=== PATIENT | male | born 1950 | race Caucasian/White ===

== ENCOUNTER → 2016-11-20 | Outpatient (CLI) | payer MEDICARE, MEDICAID ==
[~2016-11-20] MED LIST: /ATOR40TA OR; ACTO15TA OR; ACTO30TA; AMIT75TA2 OR; BABY81CH OR; BISA5TAB29 PO; CLAR5CHW OR; CLON-412 PO; COLA100C2 OR; DULO1CAP2 PO; FLON0.05; FLUOCINONIDE TOP; FOLI1TAB OR; HUMALOG; HUMALOG INSULIN SC; INSULANT; INSULANT SC; INVO100T PO; LABE300T PO; LASI40TA OR; LIDO5DIS TOP; LISI10TA4 OR; METO25TA2 OR; MICR10CA PO; MORP-38 PO; MORP100T OR; NITR0.4S SL; OXYC10TA56 OR; PRIL20CA OR; RITA10TA OR; SILV1CRE19 TOP; SOMA250T; VITA200016 PO; VITA25003 IM; VITAMIN D50000 UNT OR
--- NOTE | 2016-11-29 00:12 | ECWPNPC ---
PATIENT NAME: AGNIESZKA RAMESH : 1950 GENDER: MALE VISIT DATE: 11/20/2016 DISCHARGE DATE: 11/20/16 1144 VISIT LOCKED DATE TIME: PHYSICIAN: FABIAN SHAW RESOURCE: FABIAN SHAW REASON FOR APPOINTMENT 1. CHRONIC PAIN HISTORY OF PRESENT ILLNESS HISTORY OF PRESENT ILLNESS: PAIN THE PATIENT DESCRIBES THE PAIN... FALL RISK SCREENING: SCREENING :NO FALLS IN THE PAST YEAR TODAY'S VISIT: NOTES: RATES PAIN TODAY 5/10. DESCRIBES PAIN CONSTANT, ACHING, TENDER AND SORENOTES LEGS AND OTHER MUSCLES ACHING EVEN AT REST. LAST BLADDER CHEMO WAS IN AUGUST. USES OXYGEN CONTINIOUSLY AT 2-3 L NC. HAD FALL 2 WEEKS AGO - NOTED ROOM STARTED TO SPIN - FELL INTO RECLINER - NO INJURY.IS WEARING CERVICAL COLLAR TO KEEP FROM TURNING HEAD AND INDUCING VERTIGO.STATES HE IS HAVING NO ADVERSE EFFECTS FROM HIS PAIN MEDS OTHER THAN THEY ARE NOT EFFECTIVE ANY LONGER. CURRENT MEDICATIONS TAKING ASPIR-81 81 MG TABLET DELAYED RELEASE 1 TABLET ORALLY ONCE A DAY TAKING FOLIC ACID 1 MG TABLET 1 TABLET ORALLY ONCE A DAY TAKING LABETALOL HCL 200 MG TABLET ORALLY BID TAKING NITROSTAT 0.4 MG TABLET SUBLINGUAL SUBLINGUAL PRN TAKING LISINOPRIL 15 MG TABLET 1 TABLET ORALLY ONCE A DAY TAKING LIPITOR 40 MG TABLET 1 TABLET ORALLY ONCE A DAY TAKING OMEPRAZOLE 20 MG CAPSULE DELAYED RELEASE 1 CAPSULE ORALLY ONCE A DAY TAKING LORATADINE 10 MG TABLET 1 TABLET ORALLY ONCE A DAY TAKING CLOBETASOL PROP OINT-COAL TAR 0.05 & 2.3 % KIT EXTERNALLY TAKING BISACODYL 10 MG TABLET DELAYED RELEASE 1 TABLET NEEDED ORALLY TID PRN TAKING FUROSEMIDE 20 MG TABLET 3 TABLETS ORALLY TWICE DAILY TAKING FLONASE 50 MCG/ACT SUSPENSION 1 SPRAY IN EACH NOSTRIL NASALLY ONCE A DAY TAKING HUMALOG 100 UNIT/ML SOLUTION 34 UNITS SUBCUTANEOUS THREE TIMES DAILY TAKING LANTUS 100 UNIT/ML SOLUTION 64 UNITS SUBCUTANEOUS BEFORE BREAKFAST AND DINNER TAKING VITAMIN B12 3000 MCG/ML INTRAMUSCULARLY ONCE MONTHLY TAKING VITAMIN D 2000 UNIT TABLET ORALLY DAILY TAKING FLUOCINOLONE CREAM & EMOLLIENT 0.025 % KIT EXTERNALLY TWICE DAILY NEEDED TAKING ZOFRAN ODT 4 MG TABLET DISPERSIBLE 1 TABLET ON THE TONGUE AND ALLOW TO DISSOLVE ORALLY EVERY 8 HRS PRN NAUSEA TAKING OXYCODONE HCL 5 MG TABLET 1-2 ORALLY EVERY 4 HOURS NEEDED MDD=8 TAKING MORPHINE SULFATE ER 15 MG TABLET EXTENDED RELEASE 1 TABLET ORALLY EVERY 12 HRS MDD=2 CHRONIC PAIN TAKING AMITRIPTYLINE HCL 100 MG TABLET 1 TABLET AT BEDTIME ORALLY ONCE A DAY NOT-TAKING RITALIN 15 MG TABLET 1 TABLET ORALLY TWICE A DAY MEDICATION LIST REVIEWED AND RECONCILED WITH THE PATIENT PAST MEDICAL HISTORY POLIO HEART PROBLEMS HIGH BLOOD PRESSURE ANGINA DIABETES 1992 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 THICKENING COPD VERTIGO ALLERGIES DEMEROL: NAUSEA/VOMITING: ALLERGY NEURONTIN: SWELLING IN HANDS: ALLERGY BEXXAR: SWELLING IN ARMS AND HANDS: ALLERGY GABITRIL: SWELLING ALL OVER BODY: ALLERGY LYRICA: SWELLING: ALLERGY NIACIN: STOMACH PAIN: ALLERGY DOXAZOSIN MESYLATE: HANDS SWELL: ALLERGY ADVICOR: STOMACH PAIN: ALLERGY FLOMAX: BLURRED VISION: ALLERGY UROXATRAL: ANKLES SWELL: ALLERGY FENTANYL: SWEATS, SHAKES, CHILLS, NUMBNESS, TINGLING, LOSS OF APPETITE, LOSS OF SLEEP: ALLERGY CARISOPRODOL: SWELLING, MOOD SWINGS: ALLERGY PAROXETINE HCL: SWELLING: ALLERGY VENLAFAXINE HCL: SWELLING, TIGHTNESS IN CHEST: ALLERGY DULOXETINE HCL: RESTLESS LEG WORSE: ALLERGY PRAMIPEXOLE-MIRAPEX: HALLUCINATIONS: ALLERGY RAPAFLO: BLADDER PROBLEMS: ALLERGY INVOKANA: NAUSEA AND STOMACH PAIN: ALLERGY TRADJENTA: MUSCLE PAIN, SPASAMS AND WEAKNESS: CONTRAINDICATION POTASSIUM: NAUSEA, DIARRHEA: SIDE EFFECTS SURGICAL HISTORY OR TO STRAIGHTEN RIGHT ANKLE 196 OR TO STRAIGHTEN LEFT ANKLE 1961 OR TO STRAIGHTEN RIGHT ANKLE 1964 OR ON RIGHT ELBOW 1966 BONE GRAFT AND PLATE RIGHT LEG 1972 OR TO LEFT FORARM 1972 BONE GRAFT TO TAKE PLATE OUT AND PUT SLOAN IN 1972 SLOAN REMOVED AND OR TO GET KNEE TO BEND 1975 OR FOR HAMMER TOE AND SPUR NREMOVED 1982 REPLACED DISC CERVICAL SPINE 1992 SCOPE LEFT KNEE 1999 RIGHT TOTAL KNEE REPLACEMENT 2000 [facility] GALL[facility] REMOVED 2007 EYE SURGURY 2008 OR TO HERNIA ON BELLY BUTTON 2012 TUMOR REMOVED FROM BLADDER 2015 TUMOR REMOVED FROM BLADDER X 2 2016 HOSPITALIZATION/MAJOR DIAGNOSTIC PROCEDURE SEE ABOVE FPOR SURGURIES REVIEW OF SYSTEMS CONSTITUTIONAL: ANY CHANGE IN YOUR MEDICAL CONDITION? NO . CHILLS NO . FEVER NO . INFECTION: DO YOU HAVE NEW INFECTIONS? NO . DO YOU HAVE HISTORY OF MRSA? NO . MUSCULOSKELETAL: ANY NEW PATTERNS OF PAIN OR NUMBNESS? YES - INCREASED LEG PAIN AND SPASMS BOTH WITH ACTIVITY AND AT REST . GASTROENTEROLOGY: ANY NEW CHANGE IN BOWEL CONTROL? NO . GENITOURINARY: ANY NEW CHANGE IN BLADDER CONTROL? HAS FOLOEY CATHETER . IS THERE A CHANCE YOU COULD BE ? NO . HEMATOLOGY/LYMPH: DO YOU TAKE ANY BLOOD THINNERS? (FOR EXAMPLE- COUMADIN, PLAVIX, AGGRENOX, PLATEL, PRADAXA, OR XARELTO) NO . WHEN WAS YOUR LAST DOSE? DATE: TIME: . NEUROLOGY: HAVE YOU FALLEN IN THE PAST 6 MONTHS? YES, APPROX 2 WEEKS AGO--LOST BALANCE AND ROOM STARTED SPINNING, WENT DOWN ONTO RECLINER, NOINJURY . ANY NEW EXTREMITY NUMBNESS OR WEAKNESS? NO . CARDIOLOGY: DO YOU HAVE A PACEMAKER OR DEFIBRILLATOR? NO . RESPIRATORY: HAVE YOU BEEN SICK IN THE PAST WEEK? NO . FEVER NO . FLU LIKE SYMPTOMS? NO . COUGH NO . INTEGUMENTARY: DO YOU HAVE ANY RASHES OR OPEN SORES? NO . ALLERGIC/IMMUNO: ARE YOU ALLERGIC TO SHELLFISH OR IV DYE? NO . ANY NEW ALLERGIES? NO . PSYCHIATRIC: DO YOU HAVE THOUGHTS OF HURTING YOURSELF OR SOMEONE ELSE? NO . ARE YOU ABUSED, NEGLECTED, OR IN AN UNSAFE ENVIRONMENT? NO . ENDOCRINOLOGY: ARE YOU DIABETIC? YES, FSB 275 THIS A.M. . OTHER: DO YOU NEED ANY PRESCRIPTIONS? NO . IF YES, PLEASE LIST: ____ . ANY NEW PROBLEMS WITH YOUR MEDICATIONS? NO . WHEN DID YOU LAST EAT? ____ . WHEN DID YOU LAST DRINK? ____ . WHAT DID YOU LAST DRINK? ____ . NAME OF PERSON DRIVING YOU HOME? ____ . DO YOU HAVE ANY OTHER QUESTIONS OR CONCERNS YES, WOULD LIKE TO DISCUSS MEDS. THE CURRENT ONES ARE NOT WORKING LIKE THEY USE TO . PSYCHOLOGY: SLEEP DISTURBANCES DISRUPTED SECONDARY TO PAIN - THIS IS NEW IN THE LAST 3-6 MONTHS . UROLOGY: GENERAL FOLOEY CATH IN PLACE . REVIEWED BY: PROVIDER: FABIAN POMPA . VITAL SIGNS WT 260 LBS, HT 70 IN, BMI 37.30 INDEX, BP 143/70 MM HG, HR 88 /MIN, RR 18 /MIN, TEMP 97.1 F, OXYGEN SAT % 94, NA INITIALS TL 1043, REVIEWED BY: AD. EXAMINATION GENERAL EXAMINATION: PSYCHALERT , ORIENTED X 3 , APPROPRIATE MOOD AND AFFECT . LUNGS:DECREASED AIR ENTRY AT BASES, CLEAR TO AUSCULTATION BILATERALLY. HEART:HEART RATE REGULAR. MUSCULOSKELETAL:GENERALIZED PAIN OVER SPINE. GENERALIZED WEAKNESS IN BILATERAL LOWER EXTREMITIES. POWER CHAIR USED FOR MOBILITY. EXTREMITIES:1+ BILATERAL LE EDEMA. . SKIN:SCALEY DRY FLAKY RASH OVER BOTH LOWER EXTREMITIES.. 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 NEXT DAY TAKE NO OXYCODONE. CONTINUE MORPHINE, RISKS AND BENEFITS OF NARCOTIC/OPIOD MEDICATIONS WERE REVIEWED WITH PATIENT - THIS INCLUDES BUT IS NOT LIMITED TO RISK OF DEPENDANCE/DEVELOPMENT OF ADDICTION, MOOD DISTURBANCE AND DEPRESSION, OSTEOPOROSIS, HORMONAL AND LABIDAL CHANGES, RESPIRATORY DEPRESSION AND . PATIENT IS ADVISED NOT TO DRIVE WHILE ON THESE MEDICATIONS, FALLS CARE PLAN: 1. RECOMMEND REMOVING ALL THROW RUGS. 2. RECOMMEND NIGHT LIGHTS 3. RECOMMEND WEARING RUBBER SOLED SHOES AND TO NOT GO BAREFOOT. 4.. ADVISED TO CHANGE POSITION SLOWLY FROM SUPINE TO STANDING TO AVOID DIZZINESS. 5. ADVISED TO USE ASSISTIVE DEVICE SUCH CANE OR WALKER AND MOTOR CHAIR. 6. USE LIFELINE SERVICES OR KEEP PORTABLE PHONE READILY AVAILABLE, #128 - SCREENING BMI AND F/U PLAN IN : BMI ABOVE NORMAL TODAY. DISCUSSED WITH PATIENT NUTRITIONAL FOOD CHOICES TO ASSIST WITH WEIGHT LOSS. RECCOMMENDED REDUCING SALT, SUGAR, SODA INTAKE. RECOMMEND INCREASE ACTIVITY TO TOLERATED. 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 CLINICAL NOTES: ISTOP REGISTRY REVIEWED AND DEMNOSTRATES COMPLLIANCE. BRINGS IN MEDICATIONS WHICH IS APPROPRIATE FOR WHAT WAS DISPENSED. RECENT URINE TOXICOLOGY REVIEWED. NO UNAUTHORIZED MEDICATIONS. NO ILLICIT SUBSTANCES AND PRESCRIBED MEDICATIONS WERE PRESENT. PREVENTIVE MEDICINE PAIN CLINIC TEACHING: PROCEDURE TEACHING PRINTED INFORMATION ON BUTRANS PATCH AND MAGNESIUM GIVEN TO AND DISCUSSED WITH PATIENT AND HE VERBALIZED UNDERSTANDING. PROCEDURE CODES FA211 ESTABILISHED PATIENT [facility] CHARGE G8783 BP SCR PRFRM RCMDD DEFIND SCR INTVL G8730 PAIN ASSESS POS TOOL F/U PLAN DOC 3016F PT SCRND UNHLTHY OH USE 1124F ACP DISCUSS-NO DSCNMKR DOCD 1036F TOBACCO NON-USER 0518F FALL PLAN OF CARE DOCD G8427 DOC MEDS VERIFIED W/PT OR RE G8417 BMI >=30 CALCUATE W/FOLLOWUP 3288F FALL RISK ASSESSMENT DOCD DISPOSITION & COMMUNICATION FOLLOW UP 1 MONTH ELECTRONICALLY SIGNED BY PARIS LÓPEZ ON 11/28/2016 AT 06:35 PM EDT DISCLAIMER : THIS IS A VISIT SUMMARY EXTRACTED FROM THE [employer] CHART. IT IS NOT A COPY OF THE [employer] PROGRESS NOTE. MTDMariely
== END | disposition home or self-care (01) ==
LOC: M PAIN 10:40
PROVIDERS: ATTEND Nurse Practitioner Family
DX: Z09 Encounter for follow-up examination after completed treatment for conditions other than malignant neoplasm (principal); G89.29 Other chronic pain; G63 Polyneuropathy in diseases classified elsewhere; M54.42 Lumbago with sciatica, left side; M54.41 Lumbago with sciatica, right side; J44.9 Chronic obstructive pulmonary disease, unspecified; E11.9 Type 2 diabetes mellitus without complications; I10 Essential (primary) hypertension; I25.10 Atherosclerotic heart disease of native coronary artery without angina pectoris; Z86.12 Personal history of poliomyelitis; Z86.69 Personal history of other diseases of the nervous system and sense organs; Z79.899 Other long term (current) drug therapy; Z79.4 Long term (current) use of insulin; Z79.82 Long term (current) use of aspirin; Z88.8 Allergy status to other drugs, medicaments and biological substances

== ENCOUNTER → 2016-12-18 | Outpatient (CLI) | payer MEDICARE, MEDICAID ==
--- NOTE | 2016-12-19 00:20 | ECWPNPC ---
PATIENT NAME: AGNIESZKA RAMESH : 1950 GENDER: MALE VISIT DATE: 12/18/2016 DISCHARGE DATE: 12/18/16 1141 VISIT LOCKED DATE TIME: PHYSICIAN: FABIAN SHAW RESOURCE: FABIAN SHAW HISTORY OF PRESENT ILLNESS TODAY'S VISIT: NOTES: RATES PAIN TODAY 7-8/10. WAS NOT ABLE TO TAKE MAGNESIUM DUE TO VERTIGO. . CURRENT MEDICATIONS TAKING ASPIR-81 81 MG TABLET DELAYED RELEASE 1 TABLET ORALLY ONCE A DAY TAKING FOLIC ACID 1 MG TABLET 1 TABLET ORALLY ONCE A DAY TAKING LABETALOL HCL 200 MG TABLET ORALLY BID TAKING NITROSTAT 0.4 MG TABLET SUBLINGUAL SUBLINGUAL PRN TAKING LISINOPRIL 15 MG TABLET 1 TABLET ORALLY ONCE A DAY TAKING LIPITOR 40 MG TABLET 1 TABLET ORALLY ONCE A DAY TAKING OMEPRAZOLE 20 MG CAPSULE DELAYED RELEASE 1 CAPSULE ORALLY ONCE A DAY TAKING LORATADINE 10 MG TABLET 1 TABLET ORALLY ONCE A DAY TAKING CLOBETASOL PROP OINT-COAL TAR 0.05 & 2.3 % KIT EXTERNALLY TAKING BISACODYL 10 MG TABLET DELAYED RELEASE 1 TABLET NEEDED ORALLY TID PRN TAKING FUROSEMIDE 20 MG TABLET 3 TABLETS ORALLY TWICE DAILY TAKING FLONASE 50 MCG/ACT SUSPENSION 1 SPRAY IN EACH NOSTRIL NASALLY ONCE A DAY TAKING HUMALOG 100 UNIT/ML SOLUTION 34 UNITS SUBCUTANEOUS THREE TIMES DAILY TAKING LANTUS 100 UNIT/ML SOLUTION 64 UNITS SUBCUTANEOUS BEFORE BREAKFAST AND DINNER TAKING VITAMIN B12 3000 MCG/ML INTRAMUSCULARLY ONCE MONTHLY TAKING VITAMIN D 2000 UNIT TABLET ORALLY DAILY TAKING FLUOCINOLONE CREAM & EMOLLIENT 0.025 % KIT EXTERNALLY TWICE DAILY NEEDED TAKING ZOFRAN ODT 4 MG TABLET DISPERSIBLE 1 TABLET ON THE TONGUE AND ALLOW TO DISSOLVE ORALLY EVERY 8 HRS PRN NAUSEA TAKING AMITRIPTYLINE HCL 100 MG TABLET 1 TABLET AT BEDTIME ORALLY ONCE A DAY TAKING OXYCODONE HCL 5 MG TABLET 1-2 ORALLY EVERY 4 HOURS NEEDED MDD=8 TAKING MORPHINE SULFATE ER 15 MG TABLET EXTENDED RELEASE 1 TABLET ORALLY EVERY 12 HRS MDD=2 CHRONIC PAIN NOT-TAKING MAGNESIUM 400 MG CAPSULE DIRECTED ORALLY DAILY NOT-TAKING BUTRANS 10 MCG/HR PATCH WEEKLY 1 PATCH TO SKIN TRANSDERMAL APPLY 1 PATCH TO SKIN ONCE PER WEEK MDD=1 NOT-TAKING RITALIN 15 MG TABLET 1 TABLET ORALLY TWICE A DAY MEDICATION LIST REVIEWED AND RECONCILED WITH THE PATIENT PAST MEDICAL HISTORY POLIO HEART PROBLEMS HIGH BLOOD PRESSURE ANGINA DIABETES 1992 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 THICKENING COPD VERTIGO ALLERGIES DEMEROL: NAUSEA/VOMITING: ALLERGY NEURONTIN: SWELLING IN HANDS: ALLERGY BEXXAR: SWELLING IN ARMS AND HANDS: ALLERGY GABITRIL: SWELLING ALL OVER BODY: ALLERGY LYRICA: SWELLING: ALLERGY NIACIN: STOMACH PAIN: ALLERGY DOXAZOSIN MESYLATE: HANDS SWELL: ALLERGY ADVICOR: STOMACH PAIN: ALLERGY FLOMAX: BLURRED VISION: ALLERGY UROXATRAL: ANKLES SWELL: ALLERGY FENTANYL: SWEATS, SHAKES, CHILLS, NUMBNESS, TINGLING, LOSS OF APPETITE, LOSS OF SLEEP: ALLERGY CARISOPRODOL: SWELLING, MOOD SWINGS: ALLERGY PAROXETINE HCL: SWELLING: ALLERGY VENLAFAXINE HCL: SWELLING, TIGHTNESS IN CHEST: ALLERGY DULOXETINE HCL: RESTLESS LEG WORSE: ALLERGY PRAMIPEXOLE-MIRAPEX: HALLUCINATIONS: ALLERGY RAPAFLO: BLADDER PROBLEMS: ALLERGY INVOKANA: NAUSEA AND STOMACH PAIN: ALLERGY TRADJENTA: MUSCLE PAIN, SPASAMS AND WEAKNESS: CONTRAINDICATION POTASSIUM: NAUSEA, DIARRHEA: SIDE EFFECTS MAG-OXIDE: VERTIGO: SIDE EFFECTS REVIEW OF SYSTEMS FOLLOW-UP ROS: CARDIOLOGY: NEGATIVE FOR, CHEST PAIN, POSITIVE FOR, LEGS SWELLING . INTEGUMENT CONTINUES TO HAVE SKIN LESIONS, VASCULAR ISSUES RIGHT LEG . GI/ SHARMA CATH IN PLACE. CONTINUES TO BE TREATED FOR BLADDER CANCER. BOWELS UNDER CONTROL . MUSCULOSKELETAL SIGNIFICANT LOWER EXTREMITY PAIN . PULMONOLOGY: CHRONIC OXYGEN DISCONTINUED . VITAL SIGNS WT 260 LBS, HT 70 IN, BMI 37.30 INDEX, BP 144/67 MM HG, HR 85 /MIN, RR 18 /MIN, TEMP 97.9 F, OXYGEN SAT % 94, NA INITIALS AW 1037. EXAMINATION GENERAL EXAMINATION: PSYCHALERT , ORIENTED X 3 , APPROPRIATE MOOD AND AFFECT . LUNGS: CLEAR TO AUSCULTATION BILATERALLY. HEART:HEART RATE REGULAR. MUSCULOSKELETAL:GENERALIZED PAIN OVER SPINE. GENERALIZED WEAKNESS IN BILATERAL LOWER EXTREMITIES. POWER CHAIR USED FOR MOBILITY. EXTREMITIES:1+ BILATERAL LE EDEMA. . SKIN:SCALEY DRY FLAKY RASH OVER BOTH LOWER EXTREMITIES.. ASSESSMENTS POLYNEUROPATHY IN DISEASES CLASSIFIED ELSEWHERE - G63 (PRIMARY) CHRONICALLY ON OPIATE THERAPY - Z79.899 LUMBAGO WITH SCIATICA, LEFT SIDE - M54.42 LUMBAGO WITH SCIATICA, RIGHT SIDE - M54.41 OTHER CHRONIC PAIN - G89.29 POST-POLIO SYNDROME - G14 TREATMENT POLYNEUROPATHY IN DISEASES CLASSIFIED ELSEWHERE NOTES: WILL ATTEMPT TO OBTAIN PA FROM PHONE NUMBERS PROVIDED BY PATIENT -[phone] . SUBMITTED REQUEST - THEY WILL NOTIFY US IN 48-72 HRS. CLINICAL NOTES: ISTOP REGISTRY REVIEWED AND DEMNOSTRATES COMPLLIANCE. BRINGS IN MEDICATIONS WHICH IS APPROPRIATE FOR WHAT WAS DISPENSED. RECENT URINE TOXICOLOGY REVIEWED. NO UNAUTHORIZED MEDICATIONS. NO ILLICIT SUBSTANCES AND PRESCRIBED MEDICATIONS WERE PRESENT. PROCEDURE CODES FA211 ESTABILISHED PATIENT [facility] CHARGE G8730 PAIN ASSESS POS TOOL F/U PLAN DOC G8427 DOC MEDS VERIFIED W/PT OR RE DISPOSITION & COMMUNICATION FOLLOW UP 2 MONTHS ELECTRONICALLY SIGNED BY PARIS LÓPEZ ON 12/18/2016 AT 05:45 PM EDT DISCLAIMER : THIS IS A VISIT SUMMARY EXTRACTED FROM THE [employer] CHART. IT IS NOT A COPY OF THE [employer] PROGRESS NOTE. JAYCEE
== END | disposition home or self-care (01) ==
LOC: M PAIN 10:40
PROVIDERS: ATTEND Nurse Practitioner Family
DX: G89.29 Other chronic pain (principal); G63 Polyneuropathy in diseases classified elsewhere; M54.42 Lumbago with sciatica, left side; M54.41 Lumbago with sciatica, right side; G14 Postpolio syndrome; I10 Essential (primary) hypertension; E11.9 Type 2 diabetes mellitus without complications; J44.9 Chronic obstructive pulmonary disease, unspecified; Z79.82 Long term (current) use of aspirin; Z79.899 Other long term (current) drug therapy; Z79.4 Long term (current) use of insulin; Z88.8 Allergy status to other drugs, medicaments and biological substances

== ENCOUNTER → 2017-02-24 | Outpatient (CLI) | payer MEDICARE, MEDICAID ==
[~2017-02-24] MED LIST changes: -SILV1CRE19 TOP; +SILV1CRE60 TOP
--- NOTE | 2017-03-13 00:40 | ECWPNPC ---
PATIENT NAME: AGNIESZKA RAMESH : 1950 GENDER: MALE VISIT DATE: 02/24/2017 DISCHARGE DATE: 02/24/17 1229 VISIT LOCKED DATE TIME: PHYSICIAN: FABIAN SHAW RESOURCE: FABIAN SHAW HISTORY OF PRESENT ILLNESS HISTORY OF PRESENT ILLNESS: PAIN THE PATIENT DESCRIBES THE PAIN... FALL RISK SCREENING: SCREENING :NO FALLS IN THE PAST YEAR TODAY'S VISIT: NOTES: FENTANYL PATCHES PRODUCED SEVERE DIZZINESS SO HAD TO STOP. RATES PAIN TODAY 5/10. NOTES THE WORST IS IN LEG MUSCLES BUT OTHER AREAS ARE ALSO INVOLVED. . CURRENT MEDICATIONS TAKING ASPIR-81 81 MG TABLET DELAYED RELEASE 1 TABLET ORALLY ONCE A DAY TAKING FOLIC ACID 1 MG TABLET 1 TABLET ORALLY ONCE A DAY TAKING LABETALOL HCL 200 MG TABLET ORALLY BID TAKING NITROSTAT 0.4 MG TABLET SUBLINGUAL SUBLINGUAL PRN TAKING LISINOPRIL 15 MG TABLET 1 TABLET ORALLY ONCE A DAY TAKING LIPITOR 40 MG TABLET 1 TABLET ORALLY ONCE A DAY TAKING OMEPRAZOLE 20 MG CAPSULE DELAYED RELEASE 1 CAPSULE ORALLY ONCE A DAY TAKING LORATADINE 10 MG TABLET 1 TABLET ORALLY ONCE A DAY TAKING CLOBETASOL PROP OINT-COAL TAR 0.05 & 2.3 % KIT EXTERNALLY TAKING BISACODYL 10 MG TABLET DELAYED RELEASE 1 TABLET NEEDED ORALLY TID PRN TAKING FUROSEMIDE 20 MG TABLET 3 TABLETS ORALLY TWICE DAILY TAKING FLONASE 50 MCG/ACT SUSPENSION 1 SPRAY IN EACH NOSTRIL NASALLY ONCE A DAY TAKING HUMALOG 100 UNIT/ML SOLUTION 34 UNITS SUBCUTANEOUS THREE TIMES DAILY TAKING LANTUS 100 UNIT/ML SOLUTION 64 UNITS SUBCUTANEOUS BEFORE BREAKFAST AND DINNER TAKING VITAMIN B12 3000 MCG/ML INTRAMUSCULARLY ONCE MONTHLY TAKING VITAMIN D 2000 UNIT TABLET ORALLY DAILY TAKING FLUOCINOLONE CREAM & EMOLLIENT 0.025 % KIT EXTERNALLY TWICE DAILY NEEDED TAKING ZOFRAN ODT 4 MG TABLET DISPERSIBLE 1 TABLET ON THE TONGUE AND ALLOW TO DISSOLVE ORALLY EVERY 8 HRS PRN NAUSEA TAKING AMITRIPTYLINE HCL 100 MG TABLET 1 TABLET AT BEDTIME ORALLY ONCE A DAY TAKING OXYCODONE HCL 5 MG TABLET 1-2 ORALLY EVERY 4 HOURS NEEDED MDD=6 TAKING MORPHINE SULFATE ER 15 MG TABLET EXTENDED RELEASE 1 TABLET ORALLY EVERY 12 HRS MDD=2 CHRONIC PAIN NOT-TAKING MAGNESIUM 400 MG CAPSULE DIRECTED ORALLY DAILY NOT-TAKING BUTRANS 10 MCG/HR PATCH WEEKLY 1 PATCH TO SKIN TRANSDERMAL APPLY 1 PATCH TO SKIN ONCE PER WEEK MDD=1 NOT-TAKING RITALIN 15 MG TABLET 1 TABLET ORALLY TWICE A DAY MEDICATION LIST REVIEWED AND RECONCILED WITH THE PATIENT PAST MEDICAL HISTORY POLIO HEART PROBLEMS HIGH BLOOD PRESSURE ANGINA DIABETES 1992 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 THICKENING COPD VERTIGO BLADDER CANCER ALLERGIES DEMEROL: NAUSEA/VOMITING: ALLERGY NEURONTIN: SWELLING IN HANDS: ALLERGY BEXXAR: SWELLING IN ARMS AND HANDS: ALLERGY GABITRIL: SWELLING ALL OVER BODY: ALLERGY LYRICA: SWELLING: ALLERGY NIACIN: STOMACH PAIN: ALLERGY DOXAZOSIN MESYLATE: HANDS SWELL: ALLERGY ADVICOR: STOMACH PAIN: ALLERGY FLOMAX: BLURRED VISION: ALLERGY UROXATRAL: ANKLES SWELL: ALLERGY FENTANYL: SWEATS, SHAKES, CHILLS, NUMBNESS, TINGLING, LOSS OF APPETITE, LOSS OF SLEEP: ALLERGY CARISOPRODOL: SWELLING, MOOD SWINGS: ALLERGY PAROXETINE HCL: SWELLING: ALLERGY VENLAFAXINE HCL: SWELLING, TIGHTNESS IN CHEST: ALLERGY DULOXETINE HCL: RESTLESS LEG WORSE: ALLERGY PRAMIPEXOLE-MIRAPEX: HALLUCINATIONS: ALLERGY RAPAFLO: BLADDER PROBLEMS: ALLERGY INVOKANA: NAUSEA AND STOMACH PAIN: ALLERGY TRADJENTA: MUSCLE PAIN, SPASAMS AND WEAKNESS: CONTRAINDICATION POTASSIUM: NAUSEA, DIARRHEA: SIDE EFFECTS MAG-OXIDE: VERTIGO: SIDE EFFECTS SURGICAL HISTORY OR TO STRAIGHTEN RIGHT ANKLE 196 OR TO STRAIGHTEN LEFT ANKLE 196 OR TO STRAIGHTEN RIGHT ANKLE 1964 OR ON RIGHT ELBOW 1967 BONE GRAFT AND PLATE RIGHT LEG 1973 OR TO LEFT FORARM 1973 2ND BONE GRAFT TO TAKE PLATE OUT AND PUT SLOAN IN 1972 SLOAN REMOVED AND OR TO GET KNEE TO BEND 1975 OR FOR HAMMER TOE AND SPUR NREMOVED 1982 REPLACED DISC CERVICAL SPINE 1992 SCOPE LEFT KNEE 1999 RIGHT TOTAL KNEE REPLACEMENT 2000 SURGURY TO STRAIGHTEN RIGHT SANKLE 2002 GALLBLADDER REMOVED 2007 EYE SURGURY 2008 OR TO HERNIA ON BELLY BUTTON 2012 TUMOR REMOVED FROM BLADDER 2015 TUMOR REMOVED FROM BLADDER X 2 2016 HOSPITALIZATION/MAJOR DIAGNOSTIC PROCEDURE SEE ABOVE FPOR SURGURIES REVIEW OF SYSTEMS REVIEWED BY: PROVIDER: FABIAN POMPA . CONSTITUTIONAL: ANY CHANGE IN YOUR MEDICAL CONDITION? YES, BLADDER CANCER HAS RETURNED . CHILLS NO . FEVER NO . INFECTION: DO YOU HAVE NEW INFECTIONS? NO . DO YOU HAVE HISTORY OF MRSA? NO . MUSCULOSKELETAL: ANY NEW PATTERNS OF PAIN OR NUMBNESS? NO . GASTROENTEROLOGY: ANY NEW CHANGE IN BOWEL CONTROL? NO . GENITOURINARY: ANY NEW CHANGE IN BLADDER CONTROL? NO . IS THERE A CHANCE YOU COULD BE ? NO . HEMATOLOGY/LYMPH: DO YOU TAKE ANY BLOOD THINNERS? (FOR EXAMPLE- COUMADIN, PLAVIX, AGGRENOX, PLATEL, PRADAXA, OR XARELTO) NO . WHEN WAS YOUR LAST DOSE? DATE: TIME: . NEUROLOGY: HAVE YOU FALLEN IN THE PAST 6 MONTHS? NO . ANY NEW EXTREMITY NUMBNESS OR WEAKNESS? NO . CARDIOLOGY: DO YOU HAVE A PACEMAKER OR DEFIBRILLATOR? NO, DISCUSSED INCREASING TREND OF B/P AT EACH VISIT WITH PT. PT STATES HE WILL DISCUSS WITH PCP. . RESPIRATORY: HAVE YOU BEEN SICK IN THE PAST WEEK? NO . FEVER NO . FLU LIKE SYMPTOMS? NO . COUGH NO . INTEGUMENTARY: DO YOU HAVE ANY RASHES OR OPEN SORES? NO . ALLERGIC/IMMUNO: ARE YOU ALLERGIC TO SHELLFISH OR IV DYE? YES . ANY NEW ALLERGIES? NO . PSYCHIATRIC: DO YOU HAVE THOUGHTS OF HURTING YOURSELF OR SOMEONE ELSE? NO . ARE YOU ABUSED, NEGLECTED, OR IN AN UNSAFE ENVIRONMENT? NO . ENDOCRINOLOGY: ARE YOU DIABETIC? YES . OTHER: DO YOU NEED ANY PRESCRIPTIONS? YES, MORPHINE, OXYCODONE . IF YES, PLEASE LIST: ____ . ANY NEW PROBLEMS WITH YOUR MEDICATIONS? NO . WHEN DID YOU LAST EAT? ____ . WHEN DID YOU LAST DRINK? ____ . WHAT DID YOU LAST DRINK? ____ . NAME OF PERSON DRIVING YOU HOME? ____ . DO YOU HAVE ANY OTHER QUESTIONS OR CONCERNS NO . UROLOGY: GENERAL HAS RETURN OF BLADDER CANCER - RECENT CYSTOCOPY. . VITAL SIGNS WT 266.8 LBS, HT 70 IN, BMI 38.28 INDEX, BP 140/75 MM HG, HR 81 /MIN, RR 18 /MIN, TEMP 97.3 F, OXYGEN SAT % 94%, SAFE IN ENV? (Y/N) Y, NA INITIALS LA 11:20, REVIEWED BY: EM. EXAMINATION GENERAL EXAMINATION: PSYCHALERT , ORIENTED X 3 , APPROPRIATE MOOD AND AFFECT . LUNGS: CLEAR TO AUSCULTATION BILATERALLY. HEART:HEART RATE REGULAR. MUSCULOSKELETAL:GENERALIZED PAIN OVER SPINE. GENERALIZED WEAKNESS IN BILATERAL LOWER EXTREMITIES. POWER CHAIR USED FOR MOBILITY. EXTREMITIES:1+ BILATERAL LE EDEMA. . SKIN:SCALEY DRY FLAKY RASH OVER BOTH LOWER EXTREMITIES.. 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 BRINGS IN MEDICATIONS WHICH IS APPROPRIATE FOR WHAT WAS DISPENSED. RECENT URINE TOXICOLOGY REVIEWED. NO UNAUTHORIZED MEDICATIONS. NO ILLICIT SUBSTANCES AND PRESCRIBED MEDICATIONS WERE PRESENT. , RISKS AND BENEFITS OF NARCOTIC/OPIOD MEDICATIONS WERE REVIEWED WITH PATIENT - THIS INCLUDES BUT IS NOT LIMITED TO RISK OF DEPENDANCE/DEVELOPMENT OF ADDICTION, MOOD DISTURBANCE AND DEPRESSION, OSTEOPOROSIS, HORMONAL AND LABIDAL CHANGES, RESPIRATORY DEPRESSION AND . PATIENT IS ADVISED NOT TO DRIVE WHILE ON THESE MEDICATIONS. PROCEDURE CODES FA211 ESTABILISHED PATIENT [facility] CHARGE G8730 PAIN ASSESS POS TOOL F/U PLAN DOC G8427 DOC MEDS VERIFIED W/PT OR RE DISPOSITION & COMMUNICATION FOLLOW UP 3 MONTHS (REASON: POST POLIO) ELECTRONICALLY SIGNED BY PARIS LÓPEZ ON 03/12/2017 AT 11:27 AM EDT DISCLAIMER : THIS IS A VISIT SUMMARY EXTRACTED FROM THE [employer] CHART. IT IS NOT A COPY OF THE [employer] PROGRESS NOTE. MTDD
== END ==
LOC: M PAIN 11:00
PROVIDERS: ATTEND Nurse Practitioner Family
DX: E11.9 Type 2 diabetes mellitus without complications (principal); G63 Polyneuropathy in diseases classified elsewhere; Z79.899 Other long term (current) drug therapy; M54.42 Lumbago with sciatica, left side; M54.41 Lumbago with sciatica, right side; G89.29 Other chronic pain; G14 Postpolio syndrome; I10 Essential (primary) hypertension; Z79.82 Long term (current) use of aspirin; Z79.4 Long term (current) use of insulin; Z79.891 Long term (current) use of opiate analgesic; Z88.8 Allergy status to other drugs, medicaments and biological substances; Z88.5 Allergy status to narcotic agent

== ENCOUNTER → 2017-09-21 | Outpatient (CLI) | payer MEDICARE, MEDICAID | LOC: M PAIN 11:30 | DX: G14 Postpolio syndrome (principal); E10.42 Type 1 diabetes mellitus with diabetic polyneuropathy; M54.42 Lumbago with sciatica, left side; I10 Essential (primary) hypertension; J44.9 Chronic obstructive pulmonary disease, unspecified; Z79.4 Long term (current) use of insulin; Z79.82 Long term (current) use of aspirin; Z79.891 Long term (current) use of opiate analgesic; Z79.899 Other long term (current) drug therapy; Z88.5 Allergy status to narcotic agent; Z88.8 Allergy status to other drugs, medicaments and biological substances | CPT/HCPCS: G0463 ==

== ENCOUNTER → 2017-12-22 | Outpatient (CLI) | payer MEDICARE, MEDICAID | LOC: M PAIN 11:00 | DX: G89.29 Other chronic pain (principal); E11.42 Type 2 diabetes mellitus with diabetic polyneuropathy; G14 Postpolio syndrome; I20.9 Angina pectoris, unspecified; J44.9 Chronic obstructive pulmonary disease, unspecified; R42 Dizziness and giddiness; C67.9 Malignant neoplasm of bladder, unspecified; Z79.82 Long term (current) use of aspirin; Z79.4 Long term (current) use of insulin; Z79.891 Long term (current) use of opiate analgesic; Z79.899 Other long term (current) drug therapy; Z88.5 Allergy status to narcotic agent; Z88.8 Allergy status to other drugs, medicaments and biological substances | CPT/HCPCS: G0463 ==

== ENCOUNTER → 2018-03-23 | Outpatient (CLI) | payer MEDICARE, MEDICAID | LOC: M PAIN 10:30 | DX: G14 Postpolio syndrome (principal); G63 Polyneuropathy in diseases classified elsewhere; E11.9 Type 2 diabetes mellitus without complications; J44.9 Chronic obstructive pulmonary disease, unspecified; Z79.82 Long term (current) use of aspirin; Z79.4 Long term (current) use of insulin; Z79.891 Long term (current) use of opiate analgesic; Z79.899 Other long term (current) drug therapy; Z88.5 Allergy status to narcotic agent; Z88.8 Allergy status to other drugs, medicaments and biological substances; Z96.651 Presence of right artificial knee joint; Z86.69 Personal history of other diseases of the nervous system and sense organs; Z86.79 Personal history of other diseases of the circulatory system | CPT/HCPCS: G0463 ==

== ENCOUNTER → 2018-07-08 | Outpatient (CLI) | payer MEDICARE, MEDICAID | LOC: M PAIN 13:45 | DX: G14 Postpolio syndrome (principal); G63 Polyneuropathy in diseases classified elsewhere; M54.42 Lumbago with sciatica, left side; I20.9 Angina pectoris, unspecified; E11.9 Type 2 diabetes mellitus without complications; J44.9 Chronic obstructive pulmonary disease, unspecified; R42 Dizziness and giddiness; Z85.51 Personal history of malignant neoplasm of bladder; Z96.651 Presence of right artificial knee joint; Z79.82 Long term (current) use of aspirin; Z79.4 Long term (current) use of insulin; Z79.899 Other long term (current) drug therapy; Z79.891 Long term (current) use of opiate analgesic; Z88.8 Allergy status to other drugs, medicaments and biological substances | CPT/HCPCS: G0463 ==

== ENCOUNTER → 2018-12-02 | Outpatient (CLI) | payer MEDICARE, MEDICAID ==
[~2018-12-02] MED LIST changes: -/ATOR40TA OR; +LIPI1TAB2 OR
--- NOTE | 2018-12-17 02:15 | ECWPNPC ---
PATIENT NAME: AGNIESZKA RAMESH : 1950 GENDER: MALE VISIT DATE: 12/02/2018 DISCHARGE DATE: 12/02/18 1149 VISIT LOCKED DATE TIME: PHYSICIAN: ISABELL MICHELE RESOURCE: ISABELL MICHELE REASON FOR APPOINTMENT 1. NEUROPATHY HISTORY OF PRESENT ILLNESS HISTORY OF PRESENT ILLNESS: HERE FOR F/U OF CHRONIC PAIN ASSOCIATED WITH NEUROPATHY.RATING PAIN VAS 5/10.ALSO SUFFFERS FROM CHRONIC GENERALIZED BACK PAIN.SUFFERS FROM CHRONIC PAIN ASSOCIATED WITH POST POLIO SYNDROME.FEELS CURRENT CHRONIC PAIN MEDICATION IS EFFECTIVE AT REDUCING PAIN AND KEEPING HIM COMFORTABLE.DENIES ADVERSE EFFECTS.DEMONSTRATES COMPLIANCE WITH NARCOTIC AGREEMENT.DOES NOT DEMONSTRATE ABBERANT BEHAVIOR.DESCRIBES PAIN CONTINUOUS,ACHING AND TENDER. PAIN THE PATIENT DESCRIBES THE PAIN... FALL RISK SCREENING: SCREENING :NO FALLS REPORTED IN THE LAST YEAR CURRENT MEDICATIONS TAKING ASPIR-81 81 MG TABLET DELAYED RELEASE 1 TABLET ORALLY ONCE A DAY TAKING FOLIC ACID 1 MG TABLET 1 TABLET ORALLY ONCE A DAY TAKING LABETALOL HCL 200 MG TABLET ORALLY BID TAKING NITROSTAT 0.4 MG TABLET SUBLINGUAL SUBLINGUAL PRN TAKING LISINOPRIL 20 MG TABLET 1 TABLET ORALLY ONCE A DAY TAKING LIPITOR 40 MG TABLET 1 TABLET ORALLY ONCE A DAY TAKING OMEPRAZOLE 20 MG CAPSULE DELAYED RELEASE 1 CAPSULE ORALLY ONCE A DAY TAKING LORATADINE 10 MG TABLET 1 TABLET ORALLY ONCE A DAY TAKING CLOBETASOL PROP OINT-COAL TAR 0.05 & 2.3 % KIT EXTERNALLY TAKING BISACODYL 10 MG TABLET DELAYED RELEASE 1 TABLET NEEDED ORALLY TID PRN TAKING FUROSEMIDE 20 MG TABLET 3 TABLETS ORALLY TWICE DAILY TAKING FLONASE 50 MCG/ACT SUSPENSION 1 SPRAY IN EACH NOSTRIL NASALLY ONCE A DAY TAKING HUMALOG 100 UNIT/ML SOLUTION 35 UNITS SUBCUTANEOUS THREE TIMES DAILY TAKING LANTUS 100 UNIT/ML SOLUTION 70UNITS SUBCUTANEOUS BEFORE BREAKFAST AND DINNER TAKING VITAMIN B12 3000 MCG/ML INTRAMUSCULARLY ONCE MONTHLY TAKING VITAMIN D 2000 UNIT TABLET ORALLY DAILY TAKING FLUOCINOLONE CREAM & EMOLLIENT 0.025 % KIT EXTERNALLY TWICE DAILY NEEDED TAKING ZOFRAN ODT 4 MG TABLET DISPERSIBLE 1 TABLET ON THE TONGUE AND ALLOW TO DISSOLVE ORALLY EVERY 8 HRS PRN NAUSEA TAKING AMITRIPTYLINE HCL 100 MG TABLET 1 TABLET AT BEDTIME ORALLY ONCE A DAY TAKING OXYCODONE HCL 5 MG TABLET 1-2 ORALLY EVERY 4 HOURS NEEDED MDD=8 TAKING MS CONTIN 30 MG TABLET EXTENDED RELEASE 1 TABLET ORALLY EVERY 12 HRS MDD2 NOT-TAKING MS CONTIN 30 MG TABLET EXTENDED RELEASE 1 TABLET ORALLY EVERY 12 HRS CHRONIC PAIN MDD=2 NOT-TAKING MORPHINE SULFATE ER 30 MG CAPSULE EXTENDED RELEASE 24 HOUR 1 CAPSULE ORALLY BID MDD2 NOT-TAKING MORPHINE SULFATE ER 30 MG TABLET EXTENDED RELEASE 12 HOUR 1 TABLET ORALLY EVERY 12 HRS MDD=2 CHRONIC PAIN NOT-TAKING MS CONTIN 30 MG TABLET EXTENDED RELEASE 1 TABLET ORALLY EVERY 12 HRS CHRONIC PAIN MDD=2, NOTES: DUPLICATE NOT-TAKING MS CONTIN 30 MG TABLET EXTENDED RELEASE 1 TABLET ORALLY EVERY 12 HRS CHRONIC PAIN MDD=2, NOTES: DUPLICATE NOT-TAKING MS CONTIN 30 MG TABLET EXTENDED RELEASE 1 TABLET ORALLY EVERY 12 HRS MDD=2, NOTES: DUPLICATE NOT-TAKING MS CONTIN 30 MG TABLET EXTENDED RELEASE 1 TABLET ORALLY EVERY 12 HRS CHRONIC PAIN MDD=2 NOT-TAKING MAGNESIUM 400 MG CAPSULE DIRECTED ORALLY DAILY NOT-TAKING MS CONTIN 30 MG TABLET EXTENDED RELEASE 1 TABLET ORALLY EVERY 12 HRS CHRONIC PAIN MDD=2 NOT-TAKING BUTRANS 10 MCG/HR PATCH WEEKLY 1 PATCH TO SKIN TRANSDERMAL APPLY 1 PATCH TO SKIN ONCE PER WEEK MDD=1 NOT-TAKING RITALIN 15 MG TABLET 1 TABLET ORALLY TWICE A DAY MEDICATION LIST REVIEWED AND RECONCILED WITH THE PATIENT PAST MEDICAL HISTORY POLIO HEART PROBLEMS HIGH BLOOD PRESSURE ANGINA DIABETES 1992 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 THICKENING COPD VERTIGO BLADDER CANCER ALLERGIES DEMEROL: NAUSEA/VOMITING - ALLERGY NEURONTIN: SWELLING IN HANDS - ALLERGY BEXXAR: SWELLING IN ARMS AND HANDS - ALLERGY GABITRIL: SWELLING ALL OVER BODY - ALLERGY LYRICA: SWELLING - ALLERGY NIACIN: STOMACH PAIN - ALLERGY DOXAZOSIN MESYLATE: HANDS SWELL - ALLERGY ADVICOR: STOMACH PAIN - ALLERGY FLOMAX: BLURRED VISION - ALLERGY UROXATRAL: ANKLES SWELL - ALLERGY FENTANYL: SWEATS, SHAKES, CHILLS, NUMBNESS, TINGLING, LOSS OF APPETITE, LOSS OF SLEEP - ALLERGY CARISOPRODOL: SWELLING, MOOD SWINGS - ALLERGY PAROXETINE HCL: SWELLING - ALLERGY VENLAFAXINE HCL: SWELLING, TIGHTNESS IN CHEST - ALLERGY DULOXETINE HCL: RESTLESS LEG WORSE - ALLERGY PRAMIPEXOLE-MIRAPEX: HALLUCINATIONS - ALLERGY RAPAFLO: BLADDER PROBLEMS - ALLERGY INVOKANA: NAUSEA AND STOMACH PAIN - ALLERGY TRADJENTA: MUSCLE PAIN, SPASAMS AND WEAKNESS - CONTRAINDICATION POTASSIUM: NAUSEA, DIARRHEA - SIDE EFFECTS MAG-OXIDE: VERTIGO - SIDE EFFECTS SURGICAL HISTORY OR TO STRAIGHTEN RIGHT ANKLE 196 OR TO STRAIGHTEN LEFT ANKLE 1961 OR TO STRAIGHTEN RIGHT ANKLE 1964 OR ON RIGHT ELBOW 1967 BONE GRAFT AND PLATE RIGHT LEG 1972 OR TO LEFT FORARM 1973 2ND BONE GRAFT TO TAKE PLATE OUT AND PUT SLOAN IN 1972 SLOAN REMOVED AND OR TO GET KNEE TO BEND 1975 OR FOR HAMMER TOE AND SPUR NREMOVED 1982 REPLACED DISC CERVICAL SPINE 1992 SCOPE LEFT KNEE 1999 RIGHT TOTAL KNEE REPLACEMENT 2000 SURGURY TO STRAIGHTEN RIGHT SANKLE 2002 GALLBLADDER REMOVED 2007 EYE SURGURY 2008 OR TO HERNIA ON BELLY BUTTON 2012 TUMOR REMOVED FROM BLADDER 2015 TUMOR REMOVED FROM BLADDER X 2 2016 FAMILY HISTORY NO FAMILY HISTORY DOCUMENTED. SOCIAL HISTORY GENERAL: TOBACCO USE ARE YOU A: NONSMOKER . LATEX QUESTIONNAIRE LATEX ALLERGY : HAVE YOU EVER DEVELOPED ANY TYPE OF REACTION AFTER HANDLING LATEX PRODUCTS SUCH RUBBER GLOVES, CONDOMS, DIAPHRAGMS, BALLOONS, SOCKS, OR UNDERWEAR?NO LATEX ALLERGY : HAVE YOU EVER DEVELOPED ANY TYPE OF REACTION DURING OR AFTER DENTAL APPOINTMENT, VAGINAL/RECTAL EXAMINATION, SURGICAL PROCEDURE, OR ANY OTHER EXPOSURE?NO LATEX RISK : HAVE YOU EVER HAD ANY DIFFICULTY BREATHING OR HIVES AFTER EATING OR HANDLING ANY FRUITS, OR VEGETABLES; SUCH KIWI, BANANAS, STONE FRUITS, OR CHESTNUTSNO LATEX RISK : DO YOU HAVE A PREVIOUS PERSONAL HISTORY OF MORE THAN NINE SURGERIES, SPINA BIFIDA, OR REPEATED CATHERTIZATIONS? NO LATEX RISK : ARE YOU FREQUENTLY EXPOSED TO LATEX PRODUCTS IN YOUR OCCUPATION?NO DATE ASKED : 12/02/2018 ALCOHOL SCREENING DID YOU HAVE A DRINK CONTAINING ALCOHOL IN THE PAST YEAR?NO POINTS0 INTERPRETATIONNEGATIVE CAFFEINE CAFFEINE USE?YES HOW OFTEN AND HOW MUCH? 2 CUPS PER DAY LANGUAGE LANGUAGES SPOKEN:[place]ESE LEARNING BARRIERS / SPECIAL NEEDS ORIENTED TO PLAN OF CARE: PATIENT, PAIN MANAGEMENT PATIENT, ORIENTED TO PLAN OF CARE: PATIENT, PAIN MANAGEMENT PATIENT. NEW PATIENT PAIN DIARY TODAY'S VISITNOTES FROM 0-10, WHAT LEVEL IS YOUR PAIN TODAY?7 PAIN CLINIC PFS, CLERGY, PUBLIC HEALTH REFERRALS PFS REFERRAL NEEDED? NO, CLERGY REFERRAL NEEDED? NO, PUBLIC HEALTH REFERRAL NEEDED? NO, WAS THE PROVIDER NOTIFIED OF ANY PERTINENT INFO? NO, PFS REFERRAL NEEDED? NO, CLERGY REFERRAL NEEDED? NO, PUBLIC HEALTH REFERRAL NEEDED? NO, WAS THE PROVIDER NOTIFIED OF ANY PERTINENT INFO? NO. ADVANCE DIRECTIVE ADVANCE DIRECTIVE DISCUSSED WITH PATIENT:YES PT GIVEN INFORMATION / DOES NOT NEED HELP TO FILL OUT REVIEWED WITH PT 07/08/18 1347 BVREVIEWED WITH PT 12/02/18 NL. HOSPITALIZATION/MAJOR DIAGNOSTIC PROCEDURE SEE ABOVE FPOR SURGURIES REVIEW OF SYSTEMS REVIEWED BY: PROVIDER: ISABELL POMPA . CONSTITUTIONAL: ANY CHANGE IN YOUR MEDICAL CONDITION? NO . CHILLS NO . FEVER NO . INFECTION: DO YOU HAVE NEW INFECTIONS? NO . DO YOU HAVE HISTORY OF MRSA? NO . MUSCULOSKELETAL: ANY NEW PATTERNS OF PAIN OR NUMBNESS? NO . GASTROENTEROLOGY: ANY NEW CHANGE IN BOWEL CONTROL? NO . GENITOURINARY: ANY NEW CHANGE IN BLADDER CONTROL? NO . IS THERE A CHANCE YOU COULD BE ? NO . HEMATOLOGY/LYMPH: DO YOU TAKE ANY BLOOD THINNERS? (FOR EXAMPLE- COUMADIN, PLAVIX, AGGRENOX, PLATEL, PRADAXA, OR XARELTO) NO . WHEN WAS YOUR LAST DOSE? DATE: TIME: . NEUROLOGY: HAVE YOU FALLEN IN THE PAST 12 MONTHS? YES, 6 MONTHS AGO FELL BACKWARD INTO CHAIR/ NO INJURIES . ANY NEW EXTREMITY NUMBNESS OR WEAKNESS? NO . CARDIOLOGY: DO YOU HAVE A PACEMAKER OR DEFIBRILLATOR? NO . RESPIRATORY: HAVE YOU BEEN SICK IN THE PAST WEEK? NO . FEVER NO . FLU LIKE SYMPTOMS? NO . COUGH NO . INTEGUMENTARY: DO YOU HAVE ANY RASHES OR OPEN SORES? NO . ALLERGIC/IMMUNO: ARE YOU ALLERGIC TO IV DYE? NO . ANY NEW ALLERGIES? NO . PSYCHIATRIC: DO YOU HAVE THOUGHTS OF HURTING YOURSELF OR SOMEONE ELSE? NO . ARE YOU ABUSED, NEGLECTED, OR IN AN UNSAFE ENVIRONMENT? NO . ENDOCRINOLOGY: ARE YOU DIABETIC? YES . OTHER: DO YOU NEED ANY PRESCRIPTIONS? YES . IF YES, PLEASE LIST: OXYCODONE . ANY NEW PROBLEMS WITH YOUR MEDICATIONS? NO . WHEN DID YOU LAST EAT? ____ . WHEN DID YOU LAST DRINK? ____ . WHAT DID YOU LAST DRINK? ____ . NAME OF PERSON DRIVING YOU HOME? ____ . DO YOU HAVE ANY OTHER QUESTIONS OR CONCERNS ALWAYS HAVE PROBLEMS GETTING MORPHINE (SEE SECURE NOTES ABOVE). . VITAL SIGNS WT 254.8 LBS, HT 70 IN, BMI 36.56 INDEX, BP 150/67 MM HG, HR 84 /MIN, RR 18 /MIN, TEMP 97.0 F, OXYGEN SAT % 94%, NA INITIALS CM 1104, REVIEWED BY: NL. EXAMINATION GENERAL EXAMINATION: GENERAL APPEARANCE:AWAKE,ALERT ,PLEAASANT . PSYCHAFFECT NORMAL . LUNGS:LUNG MEREDITH ARE CLEAR TO AUSCULTATION BILATERALLY. GOOD MOVEMENT OF AIR . HEART:S1, S2 IN A REGULAR RATE AND RHYTHM. NO SIGNIFICANT MURMURS, RUBS OR GALLOPS NOTED . 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 (REF # ) BRINGS IN MEDICATIONS WHICH IS APPROPRIATE FOR WHAT WAS DISPENSED. RECENT URINE TOXICOLOGY REVIEWED. NO UNAUTHORIZED MEDICATIONS. NO ILLICIT SUBSTANCES AND PRESCRIBED MEDICATIONS WERE PRESENT. , RISKS AND BENEFITS OF NARCOTIC/OPIOD MEDICATIONS WERE REVIEWED WITH PATIENT - THIS INCLUDES BUT IS NOT LIMITED TO RISK OF DEPENDANCE/DEVELOPMENT OF ADDICTION, MOOD DISTURBANCE AND DEPRESSION, OSTEOPOROSIS, HORMONAL AND LABIDAL CHANGES, RESPIRATORY DEPRESSION AND . PATIENT IS ADVISED NOT TO DRIVE OR DRINK ALCOHOL WHILE ON THESE MEDICATIONS. PROCEDURE CODES FA211 ESTABILISHED PATIENT [facility] CHARGE DISPOSITION & COMMUNICATION FOLLOW UP 2 MONTHS ELECTRONICALLY SIGNED BY ALETHA GIBBONS ON 12/16/2018 AT 09:17 AM EDT DISCLAIMER : THIS IS A VISIT SUMMARY EXTRACTED FROM THE [employer] CHART. IT IS NOT A COPY OF THE [employer] PROGRESS NOTE. JAYCEE
== END ==
LOC: M PAIN 11:15
PROVIDERS: ATTEND Nurse Practitioner Family
DX: M54.9 Dorsalgia, unspecified (principal); G63 Polyneuropathy in diseases classified elsewhere; G89.29 Other chronic pain; Z86.79 Personal history of other diseases of the circulatory system; I10 Essential (primary) hypertension; E11.9 Type 2 diabetes mellitus without complications; J44.9 Chronic obstructive pulmonary disease, unspecified; Z86.69 Personal history of other diseases of the nervous system and sense organs; Z96.651 Presence of right artificial knee joint; Z88.5 Allergy status to narcotic agent; Z88.8 Allergy status to other drugs, medicaments and biological substances; Z79.82 Long term (current) use of aspirin; Z79.4 Long term (current) use of insulin; Z79.891 Long term (current) use of opiate analgesic; Z79.899 Other long term (current) drug therapy

== ENCOUNTER → 2019-03-08 | Outpatient (CLI) | payer MEDICARE, MEDICAID ==
[~2019-03-08] MED LIST changes: -DULO1CAP2 PO; +DULO1CAP5 PO
--- NOTE | 2019-03-23 02:27 | ECWPNPC ---
PATIENT NAME: AGNIESZKA RAMESH : 1950 GENDER: MALE VISIT DATE: 03/08/2019 DISCHARGE DATE: 03/08/19 1211 VISIT LOCKED DATE TIME: PHYSICIAN: ISABELL MICHELE RESOURCE: ISABELL MICHEEL REASON FOR APPOINTMENT 1. NEUROPATHY HISTORY OF PRESENT ILLNESS HISTORY OF PRESENT ILLNESS: HERE FOR F/U OF CHRONIC PAIN ASSOCIATED WITH NEUROPATHY.RATING PAIN VAS 6/10.ALSO SUFFFERS FROM CHRONIC GENERALIZED BACK PAIN.SUFFERS FROM CHRONIC PAIN ASSOCIATED WITH POST POLIO SYNDROME.FEELS CURRENT CHRONIC PAIN MEDICATION IS EFFECTIVE AT REDUCING PAIN AND KEEPING HIM COMFORTABLE.DENIES ADVERSE EFFECTS.DEMONSTRATES COMPLIANCE WITH NARCOTIC AGREEMENT.DOES NOT DEMONSTRATE ABBERANT BEHAVIOR.DESCRIBES PAIN CONTINUOUS,ACHING AND TENDER. PAIN THE PATIENT DESCRIBES THE PAIN... THE PATIENT DESCRIBES THE PAIN... FALL RISK SCREENING: SCREENING :NO FALLS REPORTED IN THE LAST YEAR CURRENT MEDICATIONS TAKING ASPIR-81 81 MG TABLET DELAYED RELEASE 1 TABLET ORALLY ONCE A DAY TAKING FOLIC ACID 1 MG TABLET 1 TABLET ORALLY ONCE A DAY TAKING LABETALOL HCL 200 MG TABLET ORALLY BID TAKING NITROSTAT 0.4 MG TABLET SUBLINGUAL SUBLINGUAL PRN TAKING LISINOPRIL 20 MG TABLET 1 TABLET ORALLY ONCE A DAY TAKING LIPITOR 40 MG TABLET 1 TABLET ORALLY ONCE A DAY TAKING OMEPRAZOLE 20 MG CAPSULE DELAYED RELEASE 1 CAPSULE ORALLY ONCE A DAY TAKING LORATADINE 10 MG TABLET 1 TABLET ORALLY ONCE A DAY TAKING CLOBETASOL PROP OINT-COAL TAR 0.05 & 2.3 % KIT TOPICALLY DAILY DIRECTED TAKING BISACODYL 10 MG TABLET DELAYED RELEASE 1 TABLET NEEDED ORALLY TID PRN TAKING FUROSEMIDE 20 MG TABLET 3 TABLETS ORALLY TWICE DAILY TAKING FLONASE 50 MCG/ACT SUSPENSION 1 SPRAY IN EACH NOSTRIL NASALLY ONCE A DAY TAKING HUMALOG 100 UNIT/ML SOLUTION 35 UNITS SUBCUTANEOUS THREE TIMES DAILY TAKING LANTUS 100 UNIT/ML SOLUTION 70UNITS SUBCUTANEOUS BEFORE BREAKFAST AND DINNER TAKING VITAMIN B12 3000 MCG/ML INTRAMUSCULARLY EVERY OTHER WEEK TAKING VITAMIN D 2000 UNIT TABLET ORALLY DAILY TAKING FLUOCINOLONE CREAM & EMOLLIENT 0.025 % KIT EXTERNALLY TWICE DAILY NEEDED TAKING ZOFRAN ODT 4 MG TABLET DISPERSIBLE 1 TABLET ON THE TONGUE AND ALLOW TO DISSOLVE ORALLY EVERY 8 HRS PRN NAUSEA TAKING AMITRIPTYLINE HCL 100 MG TABLET 1 TABLET AT BEDTIME ORALLY ONCE A DAY TAKING OXYCODONE HCL 5 MG TABLET 1-2 ORALLY EVERY 4 HOURS NEEDED MDD=8 TAKING MS CONTIN 30 MG TABLET EXTENDED RELEASE 1 TABLET ORALLY EVERY 12 HRS MDD2 NOT-TAKING BUTRANS 10 MCG/HR PATCH WEEKLY 1 PATCH TO SKIN TRANSDERMAL APPLY 1 PATCH TO SKIN ONCE PER WEEK MDD=1 NOT-TAKING RITALIN 15 MG TABLET 1 TABLET ORALLY TWICE A DAY DISCONTINUED MS CONTIN 30 MG TABLET EXTENDED RELEASE 1 TABLET ORALLY EVERY 12 HRS CHRONIC PAIN MDD=2 DISCONTINUED MORPHINE SULFATE ER 30 MG CAPSULE EXTENDED RELEASE 24 HOUR 1 CAPSULE ORALLY BID MDD2 DISCONTINUED MORPHINE SULFATE ER 30 MG TABLET EXTENDED RELEASE 12 HOUR 1 TABLET ORALLY EVERY 12 HRS MDD=2 CHRONIC PAIN DISCONTINUED MS CONTIN 30 MG TABLET EXTENDED RELEASE 1 TABLET ORALLY EVERY 12 HRS CHRONIC PAIN MDD=2, NOTES: DUPLICATE DISCONTINUED MS CONTIN 30 MG TABLET EXTENDED RELEASE 1 TABLET ORALLY EVERY 12 HRS CHRONIC PAIN MDD=2, NOTES: DUPLICATE DISCONTINUED MS CONTIN 30 MG TABLET EXTENDED RELEASE 1 TABLET ORALLY EVERY 12 HRS MDD=2, NOTES: DUPLICATE DISCONTINUED MS CONTIN 30 MG TABLET EXTENDED RELEASE 1 TABLET ORALLY EVERY 12 HRS CHRONIC PAIN MDD=2 DISCONTINUED MAGNESIUM 400 MG CAPSULE DIRECTED ORALLY DAILY DISCONTINUED MS CONTIN 30 MG TABLET EXTENDED RELEASE 1 TABLET ORALLY EVERY 12 HRS CHRONIC PAIN MDD=2 MEDICATION LIST REVIEWED AND RECONCILED WITH THE PATIENT PAST MEDICAL HISTORY POLIO HEART PROBLEMS HIGH BLOOD PRESSURE ANGINA DIABETES 1992 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 THICKENING COPD VERTIGO 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 OTHER CHRONIC PAIN ALLERGIES DEMEROL: NAUSEA/VOMITING - SIDE EFFECTS NEURONTIN: SWELLING IN HANDS - ALLERGY BEXXAR: SWELLING IN ARMS AND HANDS - ALLERGY GABITRIL: SWELLING ALL OVER BODY - ALLERGY LYRICA: SWELLING - ALLERGY NIACIN: STOMACH PAIN - SIDE EFFECTS DOXAZOSIN MESYLATE: HANDS SWELL - ALLERGY ADVICOR: STOMACH PAIN - SIDE EFFECTS FLOMAX: BLURRED VISION - ALLERGY UROXATRAL: ANKLES SWELL - ALLERGY FENTANYL: SWEATS, SHAKES, CHILLS, NUMBNESS, TINGLING, LOSS OF APPETITE, LOSS OF SLEEP - ALLERGY CARISOPRODOL: SWELLING, MOOD SWINGS - ALLERGY PAROXETINE HCL: SWELLING - ALLERGY VENLAFAXINE HCL: SWELLING, TIGHTNESS IN CHEST - ALLERGY DULOXETINE HCL: RESTLESS LEG WORSE - ALLERGY PRAMIPEXOLE-MIRAPEX: HALLUCINATIONS - SIDE EFFECTS RAPAFLO: BLADDER PROBLEMS - ALLERGY INVOKANA: NAUSEA AND STOMACH PAIN - ALLERGY TRADJENTA: MUSCLE PAIN, SPASAMS AND WEAKNESS - CONTRAINDICATION POTASSIUM: NAUSEA, DIARRHEA - SIDE EFFECTS MAG-OXIDE: VERTIGO - SIDE EFFECTS SURGICAL HISTORY OR TO STRAIGHTEN RIGHT ANKLE 1960 OR TO STRAIGHTEN LEFT ANKLE 1961 OR TO STRAIGHTEN RIGHT ANKLE 1964 OR ON RIGHT ELBOW 1967 BONE GRAFT AND PLATE RIGHT LEG 1972 OR TO LEFT FORARM 1972 2ND BONE GRAFT TO TAKE PLATE OUT AND PUT SLOAN IN 1972 SLOAN REMOVED AND OR TO GET KNEE TO BEND 1975 OR FOR HAMMER TOE AND SPUR NREMOVED 1981 REPLACED DISC CERVICAL SPINE 1992 SCOPE LEFT KNEE 1999 RIGHT TOTAL KNEE REPLACEMENT 2000 SURGURY TO STRAIGHTEN RIGHT SANKLE 2002 GALLBLADDER REMOVED 2007 EYE SURGURY 2007 OR TO HERNIA ON BELLY BUTTON 2012 TUMOR REMOVED FROM BLADDER 2015 TUMOR REMOVED FROM BLADDER X 2 2016 TUMOR REMOVED FROM BLADDER-GETS DONE EVERY 3 MONTHS 05/2019 FAMILY HISTORY FATHER: , DIAGNOSED WITH HEART DISEASE MOTHER: , BREAST CA, CANCER 3DAUGHTER(S) - HEALTHY. SOCIAL HISTORY GENERAL: TOBACCO USE ARE YOU A: NONSMOKER. PAIN CLINIC PFS, CLERGY, PUBLIC HEALTH REFERRALS HAS THE PATIENT BEEN EDUCATED REGARDING HIS/HER PLAN OF CARE?YES HAS THE PATIENT BEEN EDUCATED REGARDING PAIN, THE RISK FOR PAIN, THE IMPORTANCE OF EFFECTIVE PAIN MANAGEMENT, AND THE PAIN ASSESSMENT PROCESS?YES LATEX QUESTIONNAIRE LATEX ALLERGY : HAVE YOU EVER DEVELOPED ANY TYPE OF REACTION AFTER HANDLING LATEX PRODUCTS SUCH RUBBER GLOVES, CONDOMS, DIAPHRAGMS, BALLOONS, SOCKS, OR UNDERWEAR?NO LATEX ALLERGY : HAVE YOU EVER DEVELOPED ANY TYPE OF REACTION DURING OR AFTER DENTAL APPOINTMENT, VAGINAL/RECTAL EXAMINATION, SURGICAL PROCEDURE, OR ANY OTHER EXPOSURE?NO LATEX RISK : HAVE YOU EVER HAD ANY DIFFICULTY BREATHING OR HIVES AFTER EATING OR HANDLING ANY FRUITS, OR VEGETABLES; SUCH KIWI, BANANAS, STONE FRUITS, OR CHESTNUTSNO LATEX RISK : DO YOU HAVE A PREVIOUS PERSONAL HISTORY OF MORE THAN NINE SURGERIES, SPINA BIFIDA, OR REPEATED CATHERIZATIONS? YES - PLEASE INDICATE : > 9 SURGERIES, REPEATED CATHETERIZATIONS LATEX RISK : ARE YOU FREQUENTLY EXPOSED TO LATEX PRODUCTS IN YOUR OCCUPATION?YES DATE ASKED : 03/08/2019 CAFFEINE CAFFEINE USE?YES HOW OFTEN AND HOW MUCH? 2 CUPS PER DAY ADVANCE DIRECTIVE ADVANCE DIRECTIVE DISCUSSED WITH PATIENT:YES 03/08/19 PT DOES NOT HAVE ANY ADVANCED DIRECTIVES. HE STATES HE ALREADY HAS HCP INFORMATION BUT HASN'T COMPLETED YET. ASSISTANCE OFFERED IN COMPLETING FORM IF NEEDED. AD EDUCATION LEVEL OF EDUCATION:NOT FINISHED HIGH SCHOOL 11TH GRADE [employer] [id number] JEWISH LANGUAGE LANGUAGES SPOKEN:MONGOLIAN DOMESTIC VIOLENCE DO YOU FEEL SAFE IN YOUR ENVIRONMENT?YES NEW PATIENT PAIN DIARY TODAY'S VISITNOTES ALCOHOL SCREENING DID YOU HAVE A DRINK CONTAINING ALCOHOL IN THE PAST YEAR?NO POINTS0 INTERPRETATIONNEGATIVE LEARNING BARRIERS / SPECIAL NEEDS ORIENTED TO PLAN OF CARE: PATIENT, PAIN MANAGEMENT PATIENT, ORIENTED TO PLAN OF CARE: PATIENT, PAIN MANAGEMENT PATIENT. REVIEWED WITH PT 07/08/18 1347 BVREVIEWED WITH PT 12/02/18 NL. HOSPITALIZATION/MAJOR DIAGNOSTIC PROCEDURE SEE ABOVE FPOR SURGURIES REVIEW OF SYSTEMS REVIEWED BY: PROVIDER: ISABELL POMPA . CONSTITUTIONAL: ANY CHANGE IN YOUR MEDICAL CONDITION? NO . CHILLS NO . FEVER NO . INFECTION: DO YOU HAVE NEW INFECTIONS? NO . DO YOU HAVE HISTORY OF MRSA? NO . MUSCULOSKELETAL: ANY NEW PATTERNS OF PAIN OR NUMBNESS? NO . GASTROENTEROLOGY: ANY NEW CHANGE IN BOWEL CONTROL? NO . GENITOURINARY: ANY NEW CHANGE IN BLADDER CONTROL? NO . IS THERE A CHANCE YOU COULD BE ? NO . HEMATOLOGY/LYMPH: DO YOU TAKE ANY BLOOD THINNERS? (FOR EXAMPLE- COUMADIN, PLAVIX, AGGRENOX, PLATEL, PRADAXA, OR XARELTO) NO . WHEN WAS YOUR LAST DOSE? DATE: TIME: . NEUROLOGY: HAVE YOU FALLEN IN THE PAST 12 MONTHS? NO . ANY NEW EXTREMITY NUMBNESS OR WEAKNESS? YES, LEGS ARE GETTING WEAKER WITH INCREASED ACHING AND ARMS ARE ACHING MORE . CARDIOLOGY: DO YOU HAVE A PACEMAKER OR DEFIBRILLATOR? NO . RESPIRATORY: HAVE YOU BEEN SICK IN THE PAST WEEK? NO . FEVER NO . FLU LIKE SYMPTOMS? NO . COUGH NO . INTEGUMENTARY: DO YOU HAVE ANY RASHES OR OPEN SORES? NO . ALLERGIC/IMMUNO: ARE YOU ALLERGIC TO IV DYE? NO . ANY NEW ALLERGIES? NO . PSYCHIATRIC: DO YOU HAVE THOUGHTS OF HURTING YOURSELF OR SOMEONE ELSE? NO . ARE YOU ABUSED, NEGLECTED, OR IN AN UNSAFE ENVIRONMENT? NO . ENDOCRINOLOGY: ARE YOU DIABETIC? YES. FSBS 247 THIS A.M . OTHER: DO YOU NEED ANY PRESCRIPTIONS? YES . IF YES, PLEASE LIST: OXYCODONE, MS CONTIN . ANY NEW PROBLEMS WITH YOUR MEDICATIONS? NO . WHEN DID YOU LAST EAT? ____ . WHEN DID YOU LAST DRINK? ____ . WHAT DID YOU LAST DRINK? ____ . NAME OF PERSON DRIVING YOU HOME? ____ . DO YOU HAVE ANY OTHER QUESTIONS OR CONCERNS NO . VITAL SIGNS WT 258.6 LBS, HT 70 IN, BMI 37.10 INDEX, BP 139/65 MM HG, HR 77 /MIN, RR 18 /MIN, TEMP 97.2 F, OXYGEN SAT % 98%, SAFE IN ENV? (Y/N) Y, NA INITIALS AW 1116, REVIEWED BY: [place]. EXAMINATION GENERAL EXAMINATION: GENERALAWAKE,ALERT ,PLEAASANT . PSYCHAFFECT NORMAL . LUNGS:LUNG MEREDITH ARE CLEAR TO AUSCULTATION BILATERALLY. GOOD MOVEMENT OF AIR . HEART:S1, S2 IN A REGULAR RATE AND RHYTHM. NO SIGNIFICANT MURMURS, RUBS OR GALLOPS NOTED . 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 (REF # ) BRINGS IN MEDICATIONS WHICH IS APPROPRIATE FOR WHAT WAS DISPENSED. RECENT URINE TOXICOLOGY REVIEWED. NO UNAUTHORIZED MEDICATIONS. NO ILLICIT SUBSTANCES AND PRESCRIBED MEDICATIONS WERE PRESENT. URINE TOX TODAY, RISKS AND BENEFITS OF NARCOTIC/OPIOD MEDICATIONS WERE REVIEWED WITH PATIENT - THIS INCLUDES BUT IS NOT LIMITED TO RISK OF DEPENDANCE/DEVELOPMENT OF ADDICTION, MOOD DISTURBANCE AND DEPRESSION, OSTEOPOROSIS, HORMONAL AND LABIDAL CHANGES, RESPIRATORY DEPRESSION AND . PATIENT IS ADVISED NOT TO DRIVE OR DRINK ALCOHOL WHILE ON THESE MEDICATIONS. PROCEDURE CODES FA211 ESTABILISHED PATIENT [facility] FACILITY CHARGE DISPOSITION & COMMUNICATION FOLLOW UP 3 MONTHS (REASON: MED MGMT) ELECTRONICALLY SIGNED BY ALETHA GIBBONS ON 03/21/2019 AT 08:39 AM EDT DISCLAIMER : THIS IS A VISIT SUMMARY EXTRACTED FROM THE [employer] CHART. IT IS NOT A COPY OF THE [employer] PROGRESS NOTE. MTDD
== END ==
LOC: M PAIN 10:30
PROVIDERS: ATTEND Nurse Practitioner Family
DX: G89.29 Other chronic pain (principal); G63 Polyneuropathy in diseases classified elsewhere; G14 Postpolio syndrome; I20.9 Angina pectoris, unspecified; M54.42 Lumbago with sciatica, left side; M54.41 Lumbago with sciatica, right side; E11.9 Type 2 diabetes mellitus without complications; J44.9 Chronic obstructive pulmonary disease, unspecified; R42 Dizziness and giddiness; Z85.51 Personal history of malignant neoplasm of bladder; Z79.891 Long term (current) use of opiate analgesic; Z79.82 Long term (current) use of aspirin; Z79.4 Long term (current) use of insulin; Z79.899 Other long term (current) drug therapy; Z88.1 Allergy status to other antibiotic agents; Z88.5 Allergy status to narcotic agent; Z88.8 Allergy status to other drugs, medicaments and biological substances

== ENCOUNTER → 2019-06-09 | Outpatient (CLI) | payer MEDICARE, MEDICAID ==
[~2019-06-09] MED LIST changes: -MORP-38 PO; +MORP-69 PO
== END ==
LOC: M PAIN 10:45
PROVIDERS: ATTEND Family Medicine
DX: G89.29 Other chronic pain (principal); G14 Postpolio syndrome; G63 Polyneuropathy in diseases classified elsewhere; R03.0 Elevated blood-pressure reading, without diagnosis of hypertension; I24.8 Other forms of acute ischemic heart disease; E11.9 Type 2 diabetes mellitus without complications; J44.9 Chronic obstructive pulmonary disease, unspecified; R42 Dizziness and giddiness; E34.9 Endocrine disorder, unspecified; M54.41 Lumbago with sciatica, right side; M54.42 Lumbago with sciatica, left side; Z85.51 Personal history of malignant neoplasm of bladder; Z79.82 Long term (current) use of aspirin; Z79.4 Long term (current) use of insulin; Z79.899 Other long term (current) drug therapy; Z79.891 Long term (current) use of opiate analgesic; Z88.8 Allergy status to other drugs, medicaments and biological substances

== ENCOUNTER → 2019-09-08 | Outpatient (CLI) | payer MEDICARE, MEDICAID ==
--- NOTE | 2019-09-13 08:58 | ECWPNPC ---
PATIENT NAME: AGNIESZKA RAMESH : 1950 GENDER: MALE VISIT DATE: 09/08/2019 DISCHARGE DATE: 09/08/19 1249 VISIT LOCKED DATE TIME: PHYSICIAN: CORRINA BARRETT RESOURCE: CORRINA BARRETT REASON FOR APPOINTMENT 1. CHRONIC PAIN HISTORY OF PRESENT ILLNESS HISTORY OF PRESENT ILLNESS: PAIN THE PATIENT DESCRIBES THE PAIN... 69-YEAR-OLD MALE IN FOR CHRONIC PAIN FOLLOW-UP. HE RATES PAIN CURRENTLY AT A 4 OUT OF 10 AND DESCRIBES IT ACHING, SORE, AND TENDER. HE FEELS MEDICATIONS ARE HELPING AND DENIES MED SIDE EFFECTS AT THIS TIME. FALL RISK SCREENING: SCREENING :NO FALLS REPORTED IN THE LAST YEAR CURRENT MEDICATIONS TAKING ASPIR-81 81 MG TABLET DELAYED RELEASE 1 TABLET ORALLY ONCE A DAY TAKING FOLIC ACID 1 MG TABLET 1 TABLET ORALLY ONCE A DAY TAKING LABETALOL HCL 200 MG TABLET ORALLY BID TAKING NITROSTAT 0.4 MG TABLET SUBLINGUAL SUBLINGUAL PRN TAKING LISINOPRIL 20 MG TABLET 1 TABLET ORALLY ONCE A DAY TAKING LIPITOR 40 MG TABLET 1 TABLET ORALLY ONCE A DAY TAKING OMEPRAZOLE 20 MG CAPSULE DELAYED RELEASE 1 CAPSULE ORALLY ONCE A DAY TAKING LORATADINE 10 MG TABLET 1 TABLET ORALLY ONCE A DAY TAKING CLOBETASOL PROP OINT-COAL TAR 0.05 & 2.3 % KIT TOPICALLY DAILY DIRECTED TAKING BISACODYL 10 MG TABLET DELAYED RELEASE 1 TABLET NEEDED ORALLY TID PRN TAKING FUROSEMIDE 20 MG TABLET 3 TABLETS ORALLY TWICE DAILY TAKING FLONASE 50 MCG/ACT SUSPENSION 1 SPRAY IN EACH NOSTRIL NASALLY ONCE A DAY TAKING HUMALOG 100 UNIT/ML SOLUTION 35 UNITS SUBCUTANEOUS THREE TIMES DAILY TAKING LANTUS 100 UNIT/ML SOLUTION 70UNITS SUBCUTANEOUS BEFORE BREAKFAST AND DINNER TAKING VITAMIN B12 3000 MCG/ML INTRAMUSCULARLY EVERY OTHER WEEK TAKING VITAMIN D 2000 UNIT TABLET ORALLY DAILY TAKING FLUOCINOLONE CREAM & EMOLLIENT 0.025 % KIT EXTERNALLY TWICE DAILY NEEDED TAKING ZOFRAN ODT 4 MG TABLET DISPERSIBLE 1 TABLET ON THE TONGUE AND ALLOW TO DISSOLVE ORALLY EVERY 8 HRS PRN NAUSEA TAKING MAY USE CBD OIL ORALLY DAILY TAKING MS CONTIN 30 MG TABLET EXTENDED RELEASE 1 TABLET ORALLY EVERY 12 HRS MDD2 TAKING AMITRIPTYLINE HCL 100 MG TABLET 1 TABLET AT BEDTIME ORALLY ONCE A DAY TAKING OXYCODONE HCL 5 MG TABLET 1-2 ORALLY EVERY 4 HOURS NEEDED MDD=8 NOT-TAKING BUTRANS 10 MCG/HR PATCH WEEKLY 1 PATCH TO SKIN TRANSDERMAL APPLY 1 PATCH TO SKIN ONCE PER WEEK MDD=1 NOT-TAKING RITALIN 15 MG TABLET 1 TABLET ORALLY TWICE A DAY MEDICATION LIST REVIEWED AND RECONCILED WITH THE PATIENT PAST MEDICAL HISTORY POLIO HEART PROBLEMS HIGH BLOOD PRESSURE ANGINA DIABETES 1992 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 THICKENING COPD VERTIGO 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 OTHER CHRONIC PAIN ALLERGIES DEMEROL: NAUSEA/VOMITING - SIDE EFFECTS NEURONTIN: SWELLING IN HANDS - ALLERGY BEXXAR: SWELLING IN ARMS AND HANDS - ALLERGY GABITRIL: SWELLING ALL OVER BODY - ALLERGY LYRICA: SWELLING - ALLERGY NIACIN: STOMACH PAIN - SIDE EFFECTS DOXAZOSIN MESYLATE: HANDS SWELL - ALLERGY ADVICOR: STOMACH PAIN - SIDE EFFECTS FLOMAX: BLURRED VISION - ALLERGY UROXATRAL: ANKLES SWELL - ALLERGY FENTANYL: SWEATS, SHAKES, CHILLS, NUMBNESS, TINGLING, LOSS OF APPETITE, LOSS OF SLEEP - ALLERGY CARISOPRODOL: SWELLING, MOOD SWINGS - ALLERGY PAROXETINE HCL: SWELLING - ALLERGY VENLAFAXINE HCL: SWELLING, TIGHTNESS IN CHEST - ALLERGY DULOXETINE HCL: RESTLESS LEG WORSE - ALLERGY PRAMIPEXOLE-MIRAPEX: HALLUCINATIONS - SIDE EFFECTS RAPAFLO: BLADDER PROBLEMS - ALLERGY INVOKANA: NAUSEA AND STOMACH PAIN - ALLERGY TRADJENTA: MUSCLE PAIN, SPASAMS AND WEAKNESS - CONTRAINDICATION POTASSIUM: NAUSEA, DIARRHEA - SIDE EFFECTS MAG-OXIDE: VERTIGO - SIDE EFFECTS SURGICAL HISTORY OR TO STRAIGHTEN RIGHT ANKLE 196 OR TO STRAIGHTEN LEFT ANKLE 1961 OR TO STRAIGHTEN RIGHT ANKLE 1963 OR ON RIGHT ELBOW 1966 BONE GRAFT AND PLATE RIGHT LEG 1972 OR TO LEFT FORARM 1972 2ND BONE GRAFT TO TAKE PLATE OUT AND PUT SLOAN IN 1972 SLOAN REMOVED AND OR TO GET KNEE TO BEND 1975 OR FOR HAMMER TOE AND SPUR NREMOVED 1982 REPLACED DISC CERVICAL SPINE 1992 SCOPE LEFT KNEE 1999 RIGHT TOTAL KNEE REPLACEMENT 2000 SURGURY TO STRAIGHTEN RIGHT SANKLE 2002 GALLBLADDER REMOVED 2007 EYE SURGURY 2007 OR TO HERNIA ON BELLY BUTTON 2012 TUMOR REMOVED FROM BLADDER 2015 TUMOR REMOVED FROM BLADDER X 2 2016 TUMOR REMOVED FROM BLADDER-GETS DONE EVERY 3 MONTHS 05/2019 FAMILY HISTORY FATHER: , DIAGNOSED WITH UNSPECIFIED HEART DISEASE MOTHER: , BREAST CA, OTHER MALIGNANT NEOPLASM OF UNSPECIFIED SITE 3DAUGHTER(S) - HEALTHY. SOCIAL HISTORY GENERAL: TOBACCO USE ARE YOU A: NONSMOKER. PAIN CLINIC PFS, CLERGY, PUBLIC HEALTH REFERRALS HAS THE PATIENT BEEN EDUCATED REGARDING HIS/HER PLAN OF CARE?YES HAS THE PATIENT BEEN EDUCATED REGARDING PAIN, THE RISK FOR PAIN, THE IMPORTANCE OF EFFECTIVE PAIN MANAGEMENT, AND THE PAIN ASSESSMENT PROCESS?YES LATEX QUESTIONNAIRE LATEX ALLERGY : HAVE YOU EVER DEVELOPED ANY TYPE OF REACTION AFTER HANDLING LATEX PRODUCTS SUCH RUBBER GLOVES, CONDOMS, DIAPHRAGMS, BALLOONS, SOCKS, OR UNDERWEAR?NO LATEX ALLERGY : HAVE YOU EVER DEVELOPED ANY TYPE OF REACTION DURING OR AFTER DENTAL APPOINTMENT, VAGINAL/RECTAL EXAMINATION, SURGICAL PROCEDURE, OR ANY OTHER EXPOSURE?NO DATE ASKED : 03/08/2019 LATEX RISK : HAVE YOU EVER HAD ANY DIFFICULTY BREATHING OR HIVES AFTER EATING OR HANDLING ANY FRUITS, OR VEGETABLES; SUCH KIWI, BANANAS, STONE FRUITS, OR CHESTNUTSNO LATEX RISK : DO YOU HAVE A PREVIOUS PERSONAL HISTORY OF MORE THAN NINE SURGERIES, SPINA BIFIDA, OR REPEATED CATHERIZATIONS? YES - PLEASE INDICATE : > 9 SURGERIES, REPEATED CATHETERIZATIONS LATEX RISK : ARE YOU FREQUENTLY EXPOSED TO LATEX PRODUCTS IN YOUR OCCUPATION?YES CAFFEINE CAFFEINE USE?YES HOW OFTEN AND HOW MUCH? 2 CUPS PER DAY ADVANCE DIRECTIVE ADVANCE DIRECTIVE DISCUSSED WITH PATIENT:YES PT DOES NOT HAVE ANY ADVANCED DIRECTIVES. HE STATES HE ALREADY HAS HCP INFORMATION BUT HASN'T COMPLETED YET. ASSISTANCE OFFERED IN COMPLETING FORM IF NEEDED. EDUCATION LEVEL OF EDUCATION:NOT FINISHED HIGH SCHOOL 11TH GRADE RAST[employer] [id number] MORAVIAN LANGUAGE LANGUAGES SPOKEN:AMHARIC DOMESTIC VIOLENCE DO YOU FEEL SAFE IN YOUR ENVIRONMENT?YES NEW PATIENT PAIN DIARY TODAY'S VISITNOTES ALCOHOL SCREENING DID YOU HAVE A DRINK CONTAINING ALCOHOL IN THE PAST YEAR?NO POINTS0 INTERPRETATIONNEGATIVE LEARNING BARRIERS / SPECIAL NEEDS ORIENTED TO PLAN OF CARE: PATIENT, PAIN MANAGEMENT PATIENT, ORIENTED TO PLAN OF CARE: PATIENT, PAIN MANAGEMENT PATIENT. REVIEWED WITH PT 07/08/18 1347 BVREVIEWED WITH PT 12/02/18 NL. HOSPITALIZATION/MAJOR DIAGNOSTIC PROCEDURE SEE ABOVE FOR SURGURIES REVIEW OF SYSTEMS REVIEWED BY: PROVIDER: DEWAYNE TOLEDO . CONSTITUTIONAL: ANY CHANGE IN YOUR MEDICAL CONDITION? NO . CHILLS NO . FEVER NO . INFECTION: DO YOU HAVE NEW INFECTIONS? NO . DO YOU HAVE HISTORY OF MRSA? NO . MUSCULOSKELETAL: ANY NEW PATTERNS OF PAIN OR NUMBNESS? NO . GASTROENTEROLOGY: ANY NEW CHANGE IN BOWEL CONTROL? NO . GENITOURINARY: ANY NEW CHANGE IN BLADDER CONTROL? NO . IS THERE A CHANCE YOU COULD BE ? NO . HEMATOLOGY/LYMPH: DO YOU TAKE ANY BLOOD THINNERS? (FOR EXAMPLE- COUMADIN, PLAVIX, AGGRENOX, PLATEL, PRADAXA, OR XARELTO) NO . WHEN WAS YOUR LAST DOSE? DATE: TIME: . NEUROLOGY: HAVE YOU FALLEN IN THE PAST 12 MONTHS? YES, FELL 07/2019 FROM WEAKNESS PT DENIES INJURIES . ANY NEW EXTREMITY NUMBNESS OR WEAKNESS? YES, FINGERS ARE WORSE WITH NUMBNESS AND PAIN . CARDIOLOGY: DO YOU HAVE A PACEMAKER OR DEFIBRILLATOR? NO . RESPIRATORY: HAVE YOU BEEN SICK IN THE PAST WEEK? NO . FEVER NO . FLU LIKE SYMPTOMS? NO . COUGH NO . INTEGUMENTARY: DO YOU HAVE ANY RASHES OR OPEN SORES? NO . ALLERGIC/IMMUNO: ARE YOU ALLERGIC TO IV DYE? NO . ANY NEW ALLERGIES? NO . PSYCHIATRIC: DO YOU HAVE THOUGHTS OF HURTING YOURSELF OR SOMEONE ELSE? NO . ARE YOU ABUSED, NEGLECTED, OR IN AN UNSAFE ENVIRONMENT? NO . ENDOCRINOLOGY: ARE YOU DIABETIC? YES . OTHER: DO YOU NEED ANY PRESCRIPTIONS? NO . IF YES, PLEASE LIST: ____ . ANY NEW PROBLEMS WITH YOUR MEDICATIONS? NO . WHEN DID YOU LAST EAT? ____ . WHEN DID YOU LAST DRINK? ____ . WHAT DID YOU LAST DRINK? ____ . NAME OF PERSON DRIVING YOU HOME? ____ . DO YOU HAVE ANY OTHER QUESTIONS OR CONCERNS NO . VITAL SIGNS WT 267 LBS, HT 70 IN, BMI 38.31 INDEX, BP 146/64 MM HG, HR 73 /MIN, RR 18 /MIN, TEMP 97.7 F, OXYGEN SAT % 97%, NA INITIALS SC 12:16, REVIEWED BY: EM. EXAMINATION GENERAL EXAMINATION: GENERALNO ACUTE DISTRESS, WELL NOURISHED AND HYDRATED. PSYCHAPPROPRIATE MOOD AND AFFECT . LUNGS:CLEAR TO AUSCULTATION BILATERALLY, NO WHEEZES, RHONCHI, RALES. HEART:NO MURMURS, REGULAR RATE AND RHYTHM. 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 GIVEN PRESENTING SYMPTOMS AND RESULTS OF PHYSICAL EXAMINATION RECOMMENDED CONTINUATION CURRENT MEDICATION REGIMEN WITH FOLLOW-UP IN 3 MONTHS. PATIENT HAS EXPRESSED UNDERSTANDING OF AND WAS IN AGREEMENT WITH TREATMENT PLAN. GIVEN TIME TO ASK QUESTIONS AND EXPRESS CONCERNS., ISTOP REGISTRY REVIEWED AND DEMONSTRATES COMPLLIANCE. (REF # [id number] ) BRINGS IN MEDICATIONS WHICH IS APPROPRIATE FOR WHAT WAS DISPENSED. RECENT URINE TOXICOLOGY REVIEWED. NO UNAUTHORIZED MEDICATIONS. NO ILLICIT SUBSTANCES AND PRESCRIBED MEDICATIONS WERE PRESENT. PROCEDURE CODES FA211 ESTABILISHED PATIENT [facility] CHARGE DISPOSITION & COMMUNICATION FOLLOW UP 3 MONTHS (REASON: NEUROPATHY) ELECTRONICALLY SIGNED BY ALETHA MALLORY ON 09/12/2019 AT 08:27 AM EST DISCLAIMER : THIS IS A VISIT SUMMARY EXTRACTED FROM THE [employer] CHART. IT IS NOT A COPY OF THE [employer] PROGRESS NOTE. JAYCEE
== END ==
LOC: M PAIN 11:30
PROVIDERS: ATTEND Family Medicine
DX: E34.9 Endocrine disorder, unspecified (principal); G63 Polyneuropathy in diseases classified elsewhere

== ENCOUNTER → 2019-12-08 | Outpatient (CLI) | payer MEDICARE, MEDICAID ==
--- NOTE | 2019-12-10 06:18 | ECWPNPC ---
PATIENT NAME: AGNIESZKA RAMESH : 1950 GENDER: MALE VISIT DATE: 12/08/2019 DISCHARGE DATE: 12/08/19 0851 VISIT LOCKED DATE TIME: PHYSICIAN: CORRINA BARRETT RESOURCE: CORRINA BARRETT REASON FOR APPOINTMENT 1. NEUROPATHY [phone] HISTORY OF PRESENT ILLNESS HISTORY OF PRESENT ILLNESS: PAIN THE PATIENT DESCRIBES THE PAIN... PERMISSION REQUESTED AND RECEIVED FROM PATIENT FOR TELEPHONE VISIT. 69-YEAR-OLD MALE IN FOR CHRONIC PAIN FOLLOW-UP. HE RATES HIS PAIN CURRENTLY AT A 4 OUT OF 10 AND DESCRIBES IT ACHING. PATIENT FEELS MEDICATIONS ARE WORKING WELL AND DENIES MED SIDE EFFECTS AT THIS TIME. FALL RISK SCREENING: SCREENING :NO FALLS REPORTED IN THE LAST YEAR CURRENT MEDICATIONS TAKING ASPIR-81 81 MG TABLET DELAYED RELEASE 1 TABLET ORALLY ONCE A DAY TAKING FOLIC ACID 1 MG TABLET 1 TABLET ORALLY ONCE A DAY TAKING LABETALOL HCL 200 MG TABLET ORALLY BID TAKING NITROSTAT 0.4 MG TABLET SUBLINGUAL SUBLINGUAL PRN TAKING LISINOPRIL 20 MG TABLET 1 TABLET ORALLY ONCE A DAY TAKING LIPITOR 40 MG TABLET 1 TABLET ORALLY ONCE A DAY TAKING OMEPRAZOLE 20 MG CAPSULE DELAYED RELEASE 1 CAPSULE ORALLY ONCE A DAY TAKING LORATADINE 10 MG TABLET 1 TABLET ORALLY ONCE A DAY TAKING CLOBETASOL PROP OINT-COAL TAR 0.05 & 2.3 % KIT TOPICALLY DAILY DIRECTED TAKING BISACODYL 10 MG TABLET DELAYED RELEASE 1 TABLET NEEDED ORALLY TID PRN TAKING FUROSEMIDE 20 MG TABLET 3 TABLETS ORALLY TWICE DAILY TAKING FLONASE 50 MCG/ACT SUSPENSION 1 SPRAY IN EACH NOSTRIL NASALLY ONCE A DAY TAKING HUMALOG 100 UNIT/ML SOLUTION 35 UNITS SUBCUTANEOUS THREE TIMES DAILY TAKING LANTUS 100 UNIT/ML SOLUTION 70UNITS SUBCUTANEOUS BEFORE BREAKFAST AND DINNER TAKING VITAMIN B12 3000 MCG/ML INTRAMUSCULARLY EVERY OTHER WEEK TAKING VITAMIN D 2000 UNIT TABLET ORALLY DAILY TAKING FLUOCINOLONE CREAM & EMOLLIENT 0.025 % KIT EXTERNALLY TWICE DAILY NEEDED TAKING ZOFRAN ODT 4 MG TABLET DISPERSIBLE 1 TABLET ON THE TONGUE AND ALLOW TO DISSOLVE ORALLY EVERY 8 HRS PRN NAUSEA TAKING MAY USE CBD OIL ORALLY DAILY TAKING MS CONTIN 30 MG TABLET EXTENDED RELEASE 1 TABLET ORALLY EVERY 12 HRS MDD2 TAKING OXYCODONE HCL 5 MG TABLET 1-2 ORALLY EVERY 4 HOURS NEEDED MDD=8 TAKING AMITRIPTYLINE HCL 100 MG TABLET 1 TABLET AT BEDTIME ORALLY ONCE A DAY TAKING MECLIZINE HCL 12.5 MG TABLET 1 TAB ORALLY ONCE A DAY NEEDED NOT-TAKING BUTRANS 10 MCG/HR PATCH WEEKLY 1 PATCH TO SKIN TRANSDERMAL APPLY 1 PATCH TO SKIN ONCE PER WEEK MDD=1 NOT-TAKING RITALIN 15 MG TABLET 1 TABLET ORALLY TWICE A DAY MEDICATION LIST REVIEWED AND RECONCILED WITH THE PATIENT PAST MEDICAL HISTORY POLIO HEART PROBLEMS HIGH BLOOD PRESSURE ANGINA DIABETES 1992 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 THICKENING COPD VERTIGO 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 OTHER CHRONIC PAIN ALLERGIES DEMEROL: NAUSEA/VOMITING - SIDE EFFECTS NEURONTIN: SWELLING IN HANDS - ALLERGY BEXXAR: SWELLING IN ARMS AND HANDS - ALLERGY GABITRIL: SWELLING ALL OVER BODY - ALLERGY LYRICA: SWELLING - ALLERGY NIACIN: STOMACH PAIN - SIDE EFFECTS DOXAZOSIN MESYLATE: HANDS SWELL - ALLERGY ADVICOR: STOMACH PAIN - SIDE EFFECTS FLOMAX: BLURRED VISION - ALLERGY UROXATRAL: ANKLES SWELL - ALLERGY FENTANYL: SWEATS, SHAKES, CHILLS, NUMBNESS, TINGLING, LOSS OF APPETITE, LOSS OF SLEEP - ALLERGY CARISOPRODOL: SWELLING, MOOD SWINGS - ALLERGY PAROXETINE HCL: SWELLING - ALLERGY VENLAFAXINE HCL: SWELLING, TIGHTNESS IN CHEST - ALLERGY DULOXETINE HCL: RESTLESS LEG WORSE - ALLERGY PRAMIPEXOLE-MIRAPEX: HALLUCINATIONS - SIDE EFFECTS RAPAFLO: BLADDER PROBLEMS - ALLERGY TRADJENTA: MUSCLE PAIN, SPASAMS AND WEAKNESS - CONTRAINDICATION POTASSIUM: NAUSEA, DIARRHEA - SIDE EFFECTS MAG-OXIDE: VERTIGO - SIDE EFFECTS INVOKANA: HALLUCINATIONS - SIDE EFFECTS SURGICAL HISTORY OR TO STRAIGHTEN RIGHT ANKLE 1961 OR TO STRAIGHTEN LEFT ANKLE 1961 OR TO STRAIGHTEN RIGHT ANKLE 1964 OR ON RIGHT ELBOW 1967 BONE GRAFT AND PLATE RIGHT LEG 1972 OR TO LEFT FORARM 1972 2ND BONE GRAFT TO TAKE PLATE OUT AND PUT SLOAN IN 1972 SLOAN REMOVED AND OR TO GET KNEE TO BEND 1975 OR FOR HAMMER TOE AND SPUR NREMOVED 1982 REPLACED DISC CERVICAL SPINE 1992 SCOPE LEFT KNEE 1999 RIGHT TOTAL KNEE REPLACEMENT 2000 SURGURY TO STRAIGHTEN RIGHT SANKLE 2002 GALLBLADDER REMOVED 2007 EYE SURGURY 2008 OR TO HERNIA ON BELLY BUTTON 2012 TUMOR REMOVED FROM BLADDER 2015 TUMOR REMOVED FROM BLADDER X 2 2016 TUMOR REMOVED FROM BLADDER-GETS DONE EVERY 6 MONTHS 05/2019 BLADDER TUMOR REMOVED-SHOWED VERY LOW GRADE CA 08/2019 FAMILY HISTORY FATHER: , DIAGNOSED WITH UNSPECIFIED HEART DISEASE MOTHER: , BREAST CA, OTHER MALIGNANT NEOPLASM OF UNSPECIFIED SITE 3DAUGHTER(S) - HEALTHY. SOCIAL HISTORY GENERAL: TOBACCO USE ARE YOU A: NONSMOKER. PAIN CLINIC PFS, CLERGY, PUBLIC HEALTH REFERRALS HAS THE PATIENT BEEN EDUCATED REGARDING HIS/HER PLAN OF CARE?YES HAS THE PATIENT BEEN EDUCATED REGARDING PAIN, THE RISK FOR PAIN, THE IMPORTANCE OF EFFECTIVE PAIN MANAGEMENT, AND THE PAIN ASSESSMENT PROCESS?YES LATEX QUESTIONNAIRE LATEX ALLERGY : HAVE YOU EVER DEVELOPED ANY TYPE OF REACTION AFTER HANDLING LATEX PRODUCTS SUCH RUBBER GLOVES, CONDOMS, DIAPHRAGMS, BALLOONS, SOCKS, OR UNDERWEAR?NO LATEX ALLERGY : HAVE YOU EVER DEVELOPED ANY TYPE OF REACTION DURING OR AFTER DENTAL APPOINTMENT, VAGINAL/RECTAL EXAMINATION, SURGICAL PROCEDURE, OR ANY OTHER EXPOSURE?NO LATEX RISK : HAVE YOU EVER HAD ANY DIFFICULTY BREATHING OR HIVES AFTER EATING OR HANDLING ANY FRUITS, OR VEGETABLES; SUCH KIWI, BANANAS, STONE FRUITS, OR CHESTNUTSNO LATEX RISK : DO YOU HAVE A PREVIOUS PERSONAL HISTORY OF MORE THAN NINE SURGERIES, SPINA BIFIDA, OR REPEATED CATHERIZATIONS? YES - PLEASE INDICATE : > 9 SURGERIES, REPEATED CATHETERIZATIONS LATEX RISK : ARE YOU FREQUENTLY EXPOSED TO LATEX PRODUCTS IN YOUR OCCUPATION?NO DATE ASKED : 12/08/2019 CAFFEINE CAFFEINE USE?YES HOW OFTEN AND HOW MUCH? 2 CUPS PER DAY ADVANCE DIRECTIVE ADVANCE DIRECTIVE DISCUSSED WITH PATIENT:YES 12/08/2019 STATES HE HAS A HCP [id number] 2. DAUGHTER-ELIZABETH HAMMONDS [phone] EDUCATION LEVEL OF EDUCATION:NOT FINISHED HIGH SCHOOL 11TH GRADE SPIRITISM [id number] HINDUISM LANGUAGE LANGUAGES SPOKEN:SUDANESE DOMESTIC VIOLENCE DO YOU FEEL SAFE IN YOUR ENVIRONMENT?YES NEW PATIENT PAIN DIARY TODAY'S VISITNOTES 12/08/2019 PATIENT DESCRIBES PAIN :ACHING, HAVE IT ALL THE TIME, TENDER, THROBBING, SORE, SHOOTING FROM 0-10, WHAT LEVEL IS YOUR PAIN TODAY?4 PRECIPITATING FACTORS MOVING ALLEVIATING FACTORS MEDS, REST IMPACT ON FUNCTION LIMITS HIS ABILITY TO DO THINGS ALCOHOL SCREENING DID YOU HAVE A DRINK CONTAINING ALCOHOL IN THE PAST YEAR?NO POINTS0 INTERPRETATIONNEGATIVE LEARNING BARRIERS / SPECIAL NEEDS BARRIERS TO LEARNING?YES COMMENTS HAS TROUBLE READING HEARING IMPAIRED?YES :HEARING AIDES RIGHT VISION IMPAIRED?YES :CORRECTIVE LENSES COGNITIVELY IMPAIRED?NO READINESS TO LEARN?YES LEARNING PREFERENCES?NO LEARNING CAPABILITIES PRESENT?YES EMOTIONAL BARRIERS?NO SPECIAL DEVICES?YES :CANE, WALKER, WHEELCHAIR 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 CONSTITUTIONAL: ANY CHANGE IN YOUR MEDICAL CONDITION? NO . CHILLS NO . FEVER NO . INFECTION: DO YOU HAVE NEW INFECTIONS? NO . DO YOU HAVE HISTORY OF MRSA? NO . MUSCULOSKELETAL: ANY NEW PATTERNS OF PAIN OR NUMBNESS? NO . GASTROENTEROLOGY: ANY NEW CHANGE IN BOWEL CONTROL? NO . GENITOURINARY: ANY NEW CHANGE IN BLADDER CONTROL? NO . IS THERE A CHANCE YOU COULD BE ? NO . HEMATOLOGY/LYMPH: DO YOU TAKE ANY BLOOD THINNERS? (FOR EXAMPLE- COUMADIN, PLAVIX, AGGRENOX, PLATEL, PRADAXA, OR XARELTO) NO . WHEN WAS YOUR LAST DOSE? DATE: TIME: . NEUROLOGY: HAVE YOU FALLEN IN THE PAST 12 MONTHS? YES, APPROX 2 MONTHS AGO-DUE TO VERTIGO-SLID IN FRONT ON KITCHEN CHAIR TO FLOOR . ANY NEW EXTREMITY NUMBNESS OR WEAKNESS? NO . CARDIOLOGY: DO YOU HAVE A PACEMAKER OR DEFIBRILLATOR? NO . RESPIRATORY: HAVE YOU BEEN SICK IN THE PAST WEEK? NO . FEVER NO . FLU LIKE SYMPTOMS? NO . COUGH NO . INTEGUMENTARY: DO YOU HAVE ANY RASHES OR OPEN SORES? NO . ALLERGIC/IMMUNO: ARE YOU ALLERGIC TO IV DYE? NO . ANY NEW ALLERGIES? NO . PSYCHIATRIC: DO YOU HAVE THOUGHTS OF HURTING YOURSELF OR SOMEONE ELSE? NO . ARE YOU ABUSED, NEGLECTED, OR IN AN UNSAFE ENVIRONMENT? NO . ENDOCRINOLOGY: ARE YOU DIABETIC? YES . OTHER: DO YOU NEED ANY PRESCRIPTIONS? NO . IF YES, PLEASE LIST: ____ . ANY NEW PROBLEMS WITH YOUR MEDICATIONS? NO . WHEN DID YOU LAST EAT? ____ . WHEN DID YOU LAST DRINK? ____ . WHAT DID YOU LAST DRINK? ____ . NAME OF PERSON DRIVING YOU HOME? ____ . DO YOU HAVE ANY OTHER QUESTIONS OR CONCERNS NO . EXAMINATION GENERAL EXAMINATION: GENERALNO ACUTE DISTRESS, WELL NOURISHED AND HYDRATED. PSYCHAPPROPRIATE MOOD AND AFFECT . ASSESSMENTS LUMBAGO WITH SCIATICA, LEFT SIDE - M54.42 (PRIMARY) LUMBAGO WITH SCIATICA, RIGHT SIDE - M54.41 TREATMENT LUMBAGO WITH SCIATICA, LEFT SIDE CLINICAL NOTES: 69-YEAR-OLD MALE IN FOR CHRONIC PAIN FOLLOW-UP. GIVEN PRESENTING SYMPTOMS RECOMMENDED CONTINUATION OF CURRENT MEDICATION REGIMEN WITH FOLLOW-UP IN 3 MONTHS. PATIENT HAS EXPRESSED UNDERSTANDING OF AND WAS IN AGREEMENT WITH TREATMENT PLAN. GIVEN TIME TO ASK QUESTIONS AND EXPRESS CONCERNS., ISTOP REGISTRY REVIEWED AND DEMONSTRATES COMPLLIANCE. (REF # [id number] ) BRINGS IN MEDICATIONS WHICH IS APPROPRIATE FOR WHAT WAS DISPENSED. RECENT URINE TOXICOLOGY REVIEWED. NO UNAUTHORIZED MEDICATIONS. NO ILLICIT SUBSTANCES AND PRESCRIBED MEDICATIONS WERE PRESENT. TELEHEALTH VISIT PERFORMED VIA ZOOM TIME SPENT WITH PATIENT 11 MINUTES. OTHERS NOTES: 02/07/2020 UNABLE TO DO V/S DUE TO VIRTUAL VISIT AD. DISPOSITION & COMMUNICATION FOLLOW UP 3 MONTHS (REASON: BACK PAIN) ELECTRONICALLY SIGNED BY ALETHA MALLORY ON 12/09/2019 AT 01:23 PM EDT DISCLAIMER : THIS IS A VISIT SUMMARY EXTRACTED FROM THE [employer] CHART. IT IS NOT A COPY OF THE [employer] PROGRESS NOTE. JAYCEE
== END ==
LOC: M PAIN 11:00 → M TMPAIN 11:00
PROVIDERS: ATTEND Family Medicine
DX: M54.42 Lumbago with sciatica, left side (principal); M54.41 Lumbago with sciatica, right side; G89.29 Other chronic pain; I10 Essential (primary) hypertension; E11.9 Type 2 diabetes mellitus without complications; J44.9 Chronic obstructive pulmonary disease, unspecified; Z96.651 Presence of right artificial knee joint; Z88.5 Allergy status to narcotic agent; Z88.8 Allergy status to other drugs, medicaments and biological substances; Z79.82 Long term (current) use of aspirin; Z79.4 Long term (current) use of insulin; Z79.891 Long term (current) use of opiate analgesic; Z79.899 Other long term (current) drug therapy

== ENCOUNTER → 2020-06-12 | Outpatient (CLI) | payer MEDICARE, MEDICAID ==
--- NOTE | 2020-06-13 11:05 | ECWPNPC ---
PATIENT NAME: AGNIESZKA RAMESH : 1950 GENDER: MALE VISIT DATE: 06/12/2020 DISCHARGE DATE: 06/12/20 1131 VISIT LOCKED DATE TIME: PHYSICIAN: OCRRINA BARRETT RESOURCE: CORRINA BARRETT REASON FOR APPOINTMENT 1. BACK HISTORY OF PRESENT ILLNESS DEPRESSION SCREENING: PHQ-2 (2015 EDITION) LITTLE INTEREST OR PLEASURE IN DOING THINGS?NOT AT ALL FEELING DOWN, DEPRESSED, OR HOPELESS?NOT AT ALL TOTAL SCORE0 70-YEAR-OLD MALE IN FOR CHRONIC PAIN FOLLOW-UP. HE RATES HIS PAIN CURRENTLY AT A 5 OUT OF 10 AND DESCRIBES IT THROBBING. HE FEELS MEDICATIONS ARE HELPFUL AND DENIES MED SIDE EFFECTS AT THIS TIME. GENERAL: -. FALL RISK SCREENING: SCREENING :ONE FALL WITHOUT INJURY IN THE PAST YEAR PATIENT FELL AROUND MARCH 2020, WITHOUT INJURY. ONLY BRUISING OCCURED, PATIENT DID NOT SEEK MEDICAL TREATMENT. PAIN SCREENING: PATIENT HAS A COMPLAINT OF ACUTE OR CHRONIC PAIN :YES LOCATION OF PAIN:NECK, MID BACK, LOW BACK, LEG(S) PAIN IN NECK THAT RADIATES DOWN THE PATIENTS BACK AND BOTH LEGS. INTENSITY OF PAIN (SCALE OF 1 TO 10):5 WHAT DOES YOUR PAIN FEEL LIKE:THROBBING DURATION:INTERMITTENT PAIN IS INCREASED BY:ACTIVITIES PAIN IS DECREASED BY:USE OF PAIN MEDICATIONS, OTHERS MEDICATIONS AND RESTING HELPS TO REDUCE THE PAIN. NURSING NOTE: -. PAIN CENTER INTAKE QUESTIONS: DO YOU HAVE A HISTORY OF MRSA? :NO DO YOU TAKE A BLOOD THINNERS? :NO DO YOU HAVE ANY BLEEDING DISORDERS? :NO ANY NEW NUMBNESS OR WEAKNESS IN YOUR LEGS OR ARMS? :YES BOTH HANDS AND FEET TINGLE. ANY PACEMAKER,DEFIBRILLATOR, OR DORSAL COLUMN STIMULATOR? :NO DO YOU HAVE ANY RASHES OR OPEN SORES? :NO ARE YOU ALLERGIC TO IV DYE? :NO ARE YOU DIABETIC? :YES ANY NEW PROBLEMS WITH YOUR MEDICATIONS? :NO HAVE YOU RECEIVED A VACCINE IN THE PAST 30 DAYS? :NO DO YOU PLAN TO RECEIVE A VACCINE IN THE NEXT 21 DAYS? :NO DO YOU NEED ANY PRESCRIPTION? :NO DO YOU TAKE ANY IMMUNOSUPPRESSIVE MEDICATIONS? :NO IS THERE A CHANCE YOU COULD BE ? :NO ARE YOU BREAST FEEDING? :NO CURRENT MEDICATIONS TAKING ASPIR-81 81 MG TABLET DELAYED RELEASE 1 TABLET ORALLY ONCE A DAY TAKING FOLIC ACID 1 MG TABLET 1 TABLET ORALLY ONCE A DAY TAKING LABETALOL HCL 200 MG TABLET ORALLY BID TAKING NITROSTAT 0.4 MG TABLET SUBLINGUAL SUBLINGUAL PRN TAKING LISINOPRIL 20 MG TABLET 1 TABLET ORALLY ONCE A DAY TAKING LIPITOR 40 MG TABLET 1 TABLET ORALLY ONCE A DAY TAKING OMEPRAZOLE 20 MG CAPSULE DELAYED RELEASE 1 CAPSULE ORALLY ONCE A DAY TAKING LORATADINE 10 MG TABLET 1 TABLET ORALLY ONCE A DAY TAKING CLOBETASOL PROP OINT-COAL TAR 0.05 & 2.3 % KIT TOPICALLY DAILY DIRECTED TAKING BISACODYL 10 MG TABLET DELAYED RELEASE 1 TABLET NEEDED ORALLY TID PRN TAKING FUROSEMIDE 20 MG TABLET 3 TABLETS ORALLY TWICE DAILY TAKING FLONASE 50 MCG/ACT SUSPENSION 1 SPRAY IN EACH NOSTRIL NASALLY ONCE A DAY TAKING HUMALOG 100 UNIT/ML SOLUTION 35 UNITS SUBCUTANEOUS THREE TIMES DAILY TAKING LANTUS 100 UNIT/ML SOLUTION 70UNITS SUBCUTANEOUS BEFORE BREAKFAST AND DINNER TAKING VITAMIN B12 3000 MCG/ML INTRAMUSCULARLY EVERY OTHER WEEK TAKING VITAMIN D 2000 UNIT TABLET ORALLY DAILY TAKING FLUOCINOLONE CREAM & EMOLLIENT 0.025 % KIT EXTERNALLY TWICE DAILY NEEDED TAKING ZOFRAN ODT 4 MG TABLET DISPERSIBLE 1 TABLET ON THE TONGUE AND ALLOW TO DISSOLVE ORALLY EVERY 8 HRS PRN NAUSEA TAKING MECLIZINE HCL 12.5 MG TABLET 1 TAB ORALLY ONCE A DAY NEEDED TAKING MS CONTIN 30 MG TABLET EXTENDED RELEASE 1 TABLET ORALLY EVERY 12 HRS MDD2 TAKING OXYCODONE HCL 5 MG TABLET 1-2 ORALLY EVERY 4 HOURS NEEDED MDD=8 TAKING AMITRIPTYLINE HCL 100 MG TABLET 1 TABLET AT BEDTIME ORALLY ONCE A DAY NOT-TAKING MAY USE CBD OIL ORALLY DAILY NOT-TAKING BUTRANS 10 MCG/HR PATCH WEEKLY 1 PATCH TO SKIN TRANSDERMAL APPLY 1 PATCH TO SKIN ONCE PER WEEK MDD=1 NOT-TAKING RITALIN 15 MG TABLET 1 TABLET ORALLY TWICE A DAY MEDICATION LIST REVIEWED AND RECONCILED WITH THE PATIENT PAST MEDICAL HISTORY POLIO HEART PROBLEMS HIGH BLOOD PRESSURE ANGINA DIABETES 1992 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 THICKENING COPD VERTIGO 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 OTHER CHRONIC PAIN ALLERGIES DEMEROL: NAUSEA/VOMITING - SIDE EFFECTS NEURONTIN: SWELLING IN HANDS - ALLERGY BEXXAR: SWELLING IN ARMS AND HANDS - ALLERGY GABITRIL: SWELLING ALL OVER BODY - ALLERGY LYRICA: SWELLING - ALLERGY NIACIN: STOMACH PAIN - SIDE EFFECTS DOXAZOSIN MESYLATE: HANDS SWELL - ALLERGY ADVICOR: STOMACH PAIN - SIDE EFFECTS FLOMAX: BLURRED VISION - ALLERGY UROXATRAL: ANKLES SWELL - ALLERGY FENTANYL: SWEATS, SHAKES, CHILLS, NUMBNESS, TINGLING, LOSS OF APPETITE, LOSS OF SLEEP - ALLERGY CARISOPRODOL: SWELLING, MOOD SWINGS - ALLERGY PAROXETINE HCL: SWELLING - ALLERGY VENLAFAXINE HCL: SWELLING, TIGHTNESS IN CHEST - ALLERGY DULOXETINE HCL: RESTLESS LEG WORSE - ALLERGY PRAMIPEXOLE-MIRAPEX: HALLUCINATIONS - SIDE EFFECTS RAPAFLO: BLADDER PROBLEMS - ALLERGY TRADJENTA: MUSCLE PAIN, SPASAMS AND WEAKNESS - CONTRAINDICATION POTASSIUM: NAUSEA, DIARRHEA - SIDE EFFECTS MAG-OXIDE: VERTIGO - SIDE EFFECTS INVOKANA: HALLUCINATIONS - SIDE EFFECTS SURGICAL HISTORY OR TO STRAIGHTEN RIGHT ANKLE 1960 OR TO STRAIGHTEN LEFT ANKLE 1961 OR TO STRAIGHTEN RIGHT ANKLE 1963 OR ON RIGHT ELBOW 1966 BONE GRAFT AND PLATE RIGHT LEG 1972 OR TO LEFT FORARM 1972 BONE GRAFT TO TAKE PLATE OUT AND PUT SLOAN IN 1972 SLOAN REMOVED AND OR TO GET KNEE TO BEND 1975 OR FOR HAMMER TOE AND SPUR NREMOVED 1981 REPLACED DISC CERVICAL SPINE 1992 SCOPE LEFT KNEE 1999 RIGHT TOTAL KNEE REPLACEMENT 2000 SURGURY TO STRAIGHTEN RIGHT SANKLE 2002 GALLBLADDER REMOVED 2007 EYE SURGURY 2008 OR TO HERNIA ON BELLY BUTTON 2012 TUMOR REMOVED FROM BLADDER 2015 TUMOR REMOVED FROM BLADDER X 2 2016 TUMOR REMOVED FROM BLADDER-GETS DONE EVERY 6 MONTHS 05/2019 BLADDER TUMOR REMOVED-SHOWED VERY LOW GRADE CA 08/2019 FAMILY HISTORY FATHER: , DIAGNOSED WITH UNSPECIFIED HEART DISEASE MOTHER: , BREAST CA, OTHER MALIGNANT NEOPLASM OF UNSPECIFIED SITE 3DAUGHTER(S) - HEALTHY. SOCIAL HISTORY GENERAL: TOBACCO USE ARE YOU A: NONSMOKER. LATEX QUESTIONNAIRE LATEX ALLERGY : HAVE YOU EVER DEVELOPED ANY TYPE OF REACTION AFTER HANDLING LATEX PRODUCTS SUCH RUBBER GLOVES, CONDOMS, DIAPHRAGMS, BALLOONS, SOCKS, OR UNDERWEAR?NO LATEX ALLERGY : HAVE YOU EVER DEVELOPED ANY TYPE OF REACTION DURING OR AFTER DENTAL APPOINTMENT, VAGINAL/RECTAL EXAMINATION, SURGICAL PROCEDURE, OR ANY OTHER EXPOSURE?NO LATEX RISK : HAVE YOU EVER HAD ANY DIFFICULTY BREATHING OR HIVES AFTER EATING OR HANDLING ANY FRUITS, OR VEGETABLES; SUCH KIWI, BANANAS, STONE FRUITS, OR CHESTNUTSNO LATEX RISK : DO YOU HAVE A PREVIOUS PERSONAL HISTORY OF MORE THAN NINE SURGERIES, SPINA BIFIDA, OR REPEATED CATHERIZATIONS? YES - PLEASE INDICATE : > 9 SURGERIES, REPEATED CATHETERIZATIONS LATEX RISK : ARE YOU FREQUENTLY EXPOSED TO LATEX PRODUCTS IN YOUR OCCUPATION?NO DATE ASKED : 06/12/2020 ALCOHOL SCREENING DID YOU HAVE A DRINK CONTAINING ALCOHOL IN THE PAST YEAR?NO POINTS0 INTERPRETATIONNEGATIVE CAFFEINE CAFFEINE USE?YES HOW OFTEN AND HOW MUCH? 2 CUPS PER DAY [employer] [id number] RAST[employer]IAN LANGUAGE LANGUAGES SPOKEN:CHINESE EDUCATION LEVEL OF EDUCATION:NOT FINISHED HIGH SCHOOL 11TH GRADE LEARNING BARRIERS / SPECIAL NEEDS BARRIERS TO LEARNING?YES COMMENTS HAS TROUBLE READING HEARING IMPAIRED?YES VISION IMPAIRED?YES COGNITIVELY IMPAIRED?NO :HEARING AIDES RIGHT :CORRECTIVE LENSES READINESS TO LEARN?YES LEARNING PREFERENCES?NO LEARNING CAPABILITIES PRESENT?YES EMOTIONAL BARRIERS?NO SPECIAL DEVICES?YES :CANE, WALKER, WHEELCHAIR SIZING END BANDER NEEDED?NO DOMESTIC VIOLENCE DO YOU FEEL SAFE IN YOUR ENVIRONMENT?YES NEW PATIENT PAIN DIARY TODAY'S VISITNOTES 12/08/2019 PATIENT DESCRIBES PAIN :ACHING, HAVE IT ALL THE TIME, TENDER, THROBBING, SORE, SHOOTING FROM 0-10, WHAT LEVEL IS YOUR PAIN TODAY?4 PRECIPITATING FACTORS MOVING ALLEVIATING FACTORS MEDS, REST IMPACT ON FUNCTION LIMITS HIS ABILITY TO DO THINGS PAIN CLINIC PFS, CLERGY, PUBLIC HEALTH REFERRALS HAS THE PATIENT BEEN EDUCATED REGARDING HIS/HER PLAN OF CARE?YES HAS THE PATIENT BEEN EDUCATED REGARDING PAIN, THE RISK FOR PAIN, THE IMPORTANCE OF EFFECTIVE PAIN MANAGEMENT, AND THE PAIN ASSESSMENT PROCESS?YES ADVANCE DIRECTIVE ADVANCE DIRECTIVE DISCUSSED WITH PATIENT:YES 12/08/2019 STATES HE HAS A HCP [id number] 2. DAUGHTER-ELIZABETH HAMMONDS [phone] HOSPITALIZATION/MAJOR DIAGNOSTIC PROCEDURE SEE ABOVE FOR SURGURIES SEPSIS AFTER HAVING GALLBLADDER REMOVED 2006 REVIEW OF SYSTEMS CONSTITUTIONAL: ANY RECENT FEVER NO . CHILLS NO . WEIGHT CHANGE OF UNKNOWN REASONS NO . GASTROENTEROLOGY: NEW UNEXPLAINABLE CHANGES IN BOWEL CONTROL NO . CONSTIPATION NO . GENITOURINARY: ANY NEW CHANGE IN BLADDER CONTROL? NO . NEUROLOGY: NEW ONSET DIZZINESS OR NEUROLOGICAL CHANGES NOT MENTIONED NO . NEW NUMBNESS OR PAIN PATTERNS NOT MENTIONED AND PERTINENT TO TODAY'S VISIT NO . CARDIOLOGY: NEW CHEST PRESSURE NO . NEW CHEST PAIN NO . RESPIRATORY: UNEXPLAINABLE COUGH NO . NEW SHORTNESS OF BREATH NO . VITAL SIGNS WT 250.6 LBS, HT 70 IN, BMI 35.95 INDEX, BP 146/66 MM HG, HR 84 /MIN, RR 18 /MIN, TEMP 96.7 F, OXYGEN SAT % 97%, NA INITIALS AW 1052, REVIEWED BY: HUEY GONSALES [facility]. EXAMINATION GENERAL EXAMINATION: GENERALNO ACUTE DISTRESS, WELL NOURISHED AND HYDRATED. PSYCHAPPROPRIATE MOOD AND AFFECT . LUNGS:CLEAR TO AUSCULTATION BILATERALLY, NO WHEEZES, RHONCHI, RALES. HEART:NO MURMURS, REGULAR RATE AND RHYTHM. 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 GIVEN PRESENTING SYMPTOMS RECOMMENDED CONTINUATION OF CURRENT MEDICATION REGIMEN WITH FOLLOW-UP IN 4 MONTHS. PATIENT HAS EXPRESSED UNDERSTANDING OF AND WAS IN AGREEMENT WITH TREATMENT PLAN. GIVEN TIME TO ASK QUESTIONS AND EXPRESS CONCERNS. , ISTOP REGISTRY REVIEWED AND DEMONSTRATES COMPLLIANCE. (REF # [id number] ) BRINGS IN MEDICATIONS WHICH IS APPROPRIATE FOR WHAT WAS DISPENSED. RECENT URINE TOXICOLOGY REVIEWED. NO UNAUTHORIZED MEDICATIONS. NO ILLICIT SUBSTANCES AND PRESCRIBED MEDICATIONS WERE PRESENT. PREVENTIVE MEDICINE PAIN CLINIC TEACHING: THE PATIENT HAS BEEN EDUCATED REGARDING PAIN, THE RISK FOR PAIN, THE IMPORTANCE OF EFFECTIVE PAIN MANAGEMENT, AND THE PAIN ASSESSMENT PROCESS. : DISCUSSED CARE PLAN WITH PATIENT, PATIENT VERBALIZES UNDERSTANDING. PROCEDURE CODES FA211 ESTABILISHED PATIENT [facility] CHARGE DISPOSITION & COMMUNICATION FOLLOW UP 4 MONTHS (REASON: NEUROPATHY) ELECTRONICALLY SIGNED BY ALETHA MALLORY ON 06/13/2020 AT 09:18 AM EDT DISCLAIMER : THIS IS A VISIT SUMMARY EXTRACTED FROM THE [employer] CHART. IT IS NOT A COPY OF THE [employer] PROGRESS NOTE. KENNEDID
== END ==
LOC: M PAIN 11:15
PROVIDERS: ATTEND Family Medicine
DX: G89.29 Other chronic pain (principal); G63 Polyneuropathy in diseases classified elsewhere; E11.9 Type 2 diabetes mellitus without complications; J44.9 Chronic obstructive pulmonary disease, unspecified; Z96.651 Presence of right artificial knee joint; Z88.5 Allergy status to narcotic agent; Z88.8 Allergy status to other drugs, medicaments and biological substances; Z79.82 Long term (current) use of aspirin; Z79.4 Long term (current) use of insulin; Z79.891 Long term (current) use of opiate analgesic; Z79.899 Other long term (current) drug therapy

== ENCOUNTER → 2020-11-27 | Outpatient (CLI) | payer MEDICARE, MEDICAID ==
--- NOTE | 2020-11-30 04:52 | ECWPNPC ---
PATIENT NAME: AGNIESZKA RAMESH : 1950 GENDER: MALE VISIT DATE: 11/27/2020 DISCHARGE DATE: 11/27/20 1208 VISIT LOCKED DATE TIME: PHYSICIAN: CORRINA BARRETT RESOURCE: CORRINA BARRETT REASON FOR APPOINTMENT 1. BACK HISTORY OF PRESENT ILLNESS GENERAL: - 70-YEAR-OLD MALE IN FOR CHRONIC PAIN FOLLOW-UP. HE RATES HIS PAIN CURRENTLY AT A 6 OUT OF 10 AND DESCRIBES IT ACHING, BURNING, CONTINUOUS, AND SORE. HE FEELS MEDICATIONS ARE HELPFUL BUT DOES ADMIT TO BREAKTHROUGH PAIN AT TIMES. HE DENIES MED SIDE EFFECTS. FALL RISK SCREENING: SCREENING : NO FALLS REPORTED IN THE LAST YEAR. PAIN SCREENING: PATIENT HAS A COMPLAINT OF ACUTE OR CHRONIC PAIN :YES LOCATION OF PAIN:OTHER: " ALL OVER" INTENSITY OF PAIN (SCALE OF 1 TO 10):6 WHAT DOES YOUR PAIN FEEL LIKE:ACHING, BURNING, CONTINOUS, SORE DURATION:CONTINOUS, CONSTANT PAIN IS INCREASED BY:ACTIVITIES PAIN IS DECREASED BY:USE OF PAIN MEDICATIONS, OTHERS REST NURSING NOTE: -. PAIN CENTER INTAKE QUESTIONS: DO YOU HAVE A HISTORY OF MRSA? :NO DO YOU TAKE A BLOOD THINNERS? :NO DO YOU HAVE ANY BLEEDING DISORDERS? :NO ANY NEW NUMBNESS OR WEAKNESS IN YOUR LEGS OR ARMS? :NO ANY PACEMAKER,DEFIBRILLATOR, OR DORSAL COLUMN STIMULATOR? :NO DO YOU HAVE ANY RASHES OR OPEN SORES? :NO ARE YOU ALLERGIC TO IV DYE? :NO ARE YOU DIABETIC? :YES ANY NEW PROBLEMS WITH YOUR MEDICATIONS? :NO HAVE YOU RECEIVED A VACCINE IN THE PAST 30 DAYS? :NO DO YOU PLAN TO RECEIVE A VACCINE IN THE NEXT 21 DAYS? :NO DO YOU TAKE ANY IMMUNOSUPPRESSIVE MEDICATIONS? :NO ANY HISTORY OF SEIZURES? :NO ANY HISTORY OF CARDIAC ISSUES OR EVENTS? :NO DO YOU HAVE ANY KIDNEY OR LIVER DISEASE? :NO DO YOU HAVE SLEEP APNEA? :YES DO YOU WEAR A CPAP?NO ANY RECENT HEAD INJURY? :NO DO YOU HAVE ANY NEW INFECTIONS? :NO IS THERE A CHANCE YOU COULD BE ? :NO ARE YOU BREAST FEEDING? :NO WHEN DID YOU LAST EAT? : - WHEN DID YOU LAST DRINK? : - WHAT DID YOU LAST DRINK? : - NAME OF PERSON DRIVING YOU HOME? : - DO YOU HAVE ANY OTHER QUESTIONS OR CONCERNS? : - CURRENT MEDICATIONS NOT-TAKING BUTRANS 10 MCG/HR PATCH WEEKLY 1 PATCH TO SKIN TRANSDERMAL APPLY 1 PATCH TO SKIN ONCE PER WEEK MDD=1 UNKNOWN ASPIR-81 81 MG TABLET DELAYED RELEASE 1 TABLET ORALLY ONCE A DAY UNKNOWN FOLIC ACID 1 MG TABLET 1 TABLET ORALLY ONCE A DAY UNKNOWN LABETALOL HCL 200 MG TABLET ORALLY BID UNKNOWN NITROSTAT 0.4 MG TABLET SUBLINGUAL SUBLINGUAL PRN UNKNOWN LISINOPRIL 20 MG TABLET 1 TABLET ORALLY ONCE A DAY UNKNOWN LIPITOR 40 MG TABLET 1 TABLET ORALLY ONCE A DAY UNKNOWN OMEPRAZOLE 20 MG CAPSULE DELAYED RELEASE 1 CAPSULE ORALLY ONCE A DAY UNKNOWN LORATADINE 10 MG TABLET 1 TABLET ORALLY ONCE A DAY UNKNOWN CLOBETASOL PROP OINT-COAL TAR 0.05 & 2.3 % KIT TOPICALLY DAILY DIRECTED UNKNOWN BISACODYL 10 MG TABLET DELAYED RELEASE 1 TABLET NEEDED ORALLY TID PRN UNKNOWN FUROSEMIDE 20 MG TABLET 3 TABLETS ORALLY TWICE DAILY UNKNOWN FLONASE 50 MCG/ACT SUSPENSION 1 SPRAY IN EACH NOSTRIL NASALLY ONCE A DAY UNKNOWN HUMALOG 100 UNIT/ML SOLUTION 35 UNITS SUBCUTANEOUS THREE TIMES DAILY UNKNOWN LANTUS 100 UNIT/ML SOLUTION 70UNITS SUBCUTANEOUS BEFORE BREAKFAST AND DINNER UNKNOWN VITAMIN B12 3000 MCG/ML INTRAMUSCULARLY 2X/WEEK UNKNOWN VITAMIN D 2000 UNIT TABLET ORALLY DAILY UNKNOWN FLUOCINOLONE CREAM & EMOLLIENT 0.025 % KIT EXTERNALLY TWICE DAILY NEEDED UNKNOWN ZOFRAN ODT 4 MG TABLET DISPERSIBLE 1 TABLET ON THE TONGUE AND ALLOW TO DISSOLVE ORALLY EVERY 8 HRS PRN NAUSEA UNKNOWN MECLIZINE HCL 12.5 MG TABLET 1 TAB ORALLY ONCE A DAY NEEDED UNKNOWN MS CONTIN 30 MG TABLET EXTENDED RELEASE 1 TABLET ORALLY EVERY 12 HRS MDD2 UNKNOWN OXYCODONE HCL 5 MG TABLET 1-2 ORALLY EVERY 4 HOURS NEEDED MDD=8 UNKNOWN AMITRIPTYLINE HCL 100 MG TABLET 1 TABLET AT BEDTIME ORALLY ONCE A DAY UNKNOWN MAY USE CBD OIL ORALLY DAILY, NOTES: " NOT USING" UNKNOWN RITALIN 15 MG TABLET 1 TABLET ORALLY TWICE A DAY MEDICATION LIST REVIEWED AND RECONCILED WITH THE PATIENT PAST MEDICAL HISTORY POLIO HEART PROBLEMS HIGH BLOOD PRESSURE ANGINA DIABETES 1992 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 THICKENING COPD VERTIGO 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 OTHER CHRONIC PAIN ALLERGIES DEMEROL: NAUSEA/VOMITING - SIDE EFFECTS NEURONTIN: SWELLING IN HANDS - ALLERGY BEXXAR: SWELLING IN ARMS AND HANDS - ALLERGY GABITRIL: SWELLING ALL OVER BODY - ALLERGY LYRICA: SWELLING - ALLERGY NIACIN: STOMACH PAIN - SIDE EFFECTS DOXAZOSIN MESYLATE: HANDS SWELL - ALLERGY ADVICOR: STOMACH PAIN - SIDE EFFECTS FLOMAX: BLURRED VISION - ALLERGY UROXATRAL: ANKLES SWELL - ALLERGY FENTANYL: SWEATS, SHAKES, CHILLS, NUMBNESS, TINGLING, LOSS OF APPETITE, LOSS OF SLEEP - ALLERGY CARISOPRODOL: SWELLING, MOOD SWINGS - ALLERGY PAROXETINE HCL: SWELLING - ALLERGY VENLAFAXINE HCL: SWELLING, TIGHTNESS IN CHEST - ALLERGY DULOXETINE HCL: RESTLESS LEG WORSE - ALLERGY PRAMIPEXOLE-MIRAPEX: HALLUCINATIONS - SIDE EFFECTS RAPAFLO: BLADDER PROBLEMS - ALLERGY TRADJENTA: MUSCLE PAIN, SPASAMS AND WEAKNESS - CONTRAINDICATION POTASSIUM: NAUSEA, DIARRHEA - SIDE EFFECTS MAG-OXIDE: VERTIGO - SIDE EFFECTS INVOKANA: HALLUCINATIONS - SIDE EFFECTS SURGICAL HISTORY OR TO STRAIGHTEN RIGHT ANKLE 1960 OR TO STRAIGHTEN LEFT ANKLE 1961 OR TO STRAIGHTEN RIGHT ANKLE 1963 OR ON RIGHT ELBOW 1966 BONE GRAFT AND PLATE RIGHT LEG 1972 OR TO LEFT FORARM 1972 BONE GRAFT TO TAKE PLATE OUT AND PUT SLOAN IN 1972 SLOAN REMOVED AND OR TO GET KNEE TO BEND 1975 OR FOR HAMMER TOE AND SPUR NREMOVED 1982 REPLACED DISC CERVICAL SPINE 1992 SCOPE LEFT KNEE 1999 RIGHT TOTAL KNEE REPLACEMENT 2000 SURGURY TO STRAIGHTEN RIGHT SANKLE 2002 GALLBLADDER REMOVED 2007 EYE SURGURY 2008 OR TO HERNIA ON BELLY BUTTON 2012 TUMOR REMOVED FROM BLADDER 2015 TUMOR REMOVED FROM BLADDER X 2 2016 TUMOR REMOVED FROM BLADDER-GETS DONE EVERY 6 MONTHS 05/2019 BLADDER TUMOR REMOVED-SHOWED VERY LOW GRADE CA 08/2019 FAMILY HISTORY FATHER: , DIAGNOSED WITH UNSPECIFIED HEART DISEASE MOTHER: , BREAST CA, OTHER MALIGNANT NEOPLASM OF UNSPECIFIED SITE 3DAUGHTER(S) - HEALTHY. SOCIAL HISTORY GENERAL: TOBACCO USE ARE YOU A: NONSMOKER. LATEX QUESTIONNAIRE LATEX ALLERGY : HAVE YOU EVER DEVELOPED ANY TYPE OF REACTION AFTER HANDLING LATEX PRODUCTS SUCH RUBBER GLOVES, CONDOMS, DIAPHRAGMS, BALLOONS, SOCKS, OR UNDERWEAR?NO LATEX ALLERGY : HAVE YOU EVER DEVELOPED ANY TYPE OF REACTION DURING OR AFTER DENTAL APPOINTMENT, VAGINAL/RECTAL EXAMINATION, SURGICAL PROCEDURE, OR ANY OTHER EXPOSURE?NO LATEX RISK : HAVE YOU EVER HAD ANY DIFFICULTY BREATHING OR HIVES AFTER EATING OR HANDLING ANY FRUITS, OR VEGETABLES; SUCH KIWI, BANANAS, STONE FRUITS, OR CHESTNUTSNO LATEX RISK : DO YOU HAVE A PREVIOUS PERSONAL HISTORY OF MORE THAN NINE SURGERIES, SPINA BIFIDA, OR REPEATED CATHERIZATIONS? YES - PLEASE INDICATE : > 9 SURGERIES, REPEATED CATHETERIZATIONS LATEX RISK : ARE YOU FREQUENTLY EXPOSED TO LATEX PRODUCTS IN YOUR OCCUPATION?NO DATE ASKED : 11/27/2020 ALCOHOL USE: NO. ALCOHOL SCREENING DID YOU HAVE A DRINK CONTAINING ALCOHOL IN THE PAST YEAR?NO POINTS0 INTERPRETATIONNEGATIVE RECREATIONAL DRUG USE DRUG USE?NO CAFFEINE CAFFEINE USE?YES HOW OFTEN AND HOW MUCH? 2 CUPS PER DAY LATTER DAY [id number] REL[employer]ION LANGUAGE LANGUAGES SPOKEN:NAURUAN EDUCATION LEVEL OF EDUCATION:NOT FINISHED HIGH SCHOOL 11TH GRADE LEARNING BARRIERS / SPECIAL NEEDS BARRIERS TO LEARNING?YES COMMENTS HAS TROUBLE READING HEARING IMPAIRED?YES :HEARING AIDES RIGHT VISION IMPAIRED?YES :CORRECTIVE LENSES COGNITIVELY IMPAIRED?NO READINESS TO LEARN?YES LEARNING PREFERENCES?NO LEARNING CAPABILITIES PRESENT?YES EMOTIONAL BARRIERS?NO SPECIAL DEVICES?YES :CANE, WALKER, WHEELCHAIR ANIMAL RIDES MANAGER NEEDED?NO DOMESTIC VIOLENCE DO YOU FEEL SAFE IN YOUR ENVIRONMENT?YES TODAY'S VISITNOTES 12/08/2019 PATIENT DESCRIBES PAIN :ACHING, HAVE IT ALL THE TIME, TENDER, THROBBING, SORE, SHOOTING FROM 0-10, WHAT LEVEL IS YOUR PAIN TODAY?4 PRECIPITATING FACTORS MOVING ALLEVIATING FACTORS MEDS, REST IMPACT ON FUNCTION LIMITS HIS ABILITY TO DO THINGS - HAS THE PATIENT BEEN EDUCATED REGARDING HIS/HER PLAN OF CARE?YES HAS THE PATIENT BEEN EDUCATED REGARDING PAIN, THE RISK FOR PAIN, THE IMPORTANCE OF EFFECTIVE PAIN MANAGEMENT, AND THE PAIN ASSESSMENT PROCESS?YES ADVANCE DIRECTIVE ADVANCE DIRECTIVE DISCUSSED WITH PATIENT:YES 12/08/2019 STATES HE HAS A HCP [phone] 2. DAUGHTER-ELIZABETH HAMMONDS [phone] HOSPITALIZATION/MAJOR DIAGNOSTIC PROCEDURE SEE ABOVE FOR SURGURIES SEPSIS AFTER HAVING GALLBLADDER REMOVED 2007 REVIEW OF SYSTEMS CONSTITUTIONAL: ANY RECENT FEVER NO . CHILLS NO . WEIGHT CHANGE OF UNKNOWN REASONS NO . GASTROENTEROLOGY: NEW UNEXPLAINABLE CHANGES IN BOWEL CONTROL NO . CONSTIPATION NO . GENITOURINARY: ANY NEW CHANGE IN BLADDER CONTROL? NO . NEUROLOGY: NEW ONSET DIZZINESS OR NEUROLOGICAL CHANGES NOT MENTIONED NO . NEW NUMBNESS OR PAIN PATTERNS NOT MENTIONED AND PERTINENT TO TODAY'S VISIT NO . CARDIOLOGY: NEW CHEST PRESSURE NO . PATIENT DENIES NO . RESPIRATORY: UNEXPLAINABLE COUGH NO . NEW SHORTNESS OF BREATH NO . VITAL SIGNS WT 245.8 LBS, HT 70 IN, BMI 35.26 INDEX, BP 146/82 MM HG, HR 99 /MIN, RR 18 /MIN, TEMP 98.0 F, OXYGEN SAT % 96%, SAFE IN ENV? (Y/N) YES, NA INITIALS AW 1124, REVIEWED BY: ZORAN RUSSELL. EXAMINATION GENERAL EXAMINATION: GENERALNO ACUTE DISTRESS, WELL NOURISHED AND HYDRATED. PSYCHAPPROPRIATE MOOD AND AFFECT . LUNGS:CLEAR TO AUSCULTATION BILATERALLY, NO WHEEZES, RHONCHI, RALES. HEART:NO MURMURS, REGULAR RATE AND RHYTHM. ASSESSMENTS LUMBAGO WITH SCIATICA, LEFT SIDE - M54.42 (PRIMARY) LUMBAGO WITH SCIATICA, RIGHT SIDE - M54.41 TREATMENT LUMBAGO WITH SCIATICA, LEFT SIDE NOTES: 70-YEAR-OLD MALE IN FOR CHRONIC PAIN FOLLOW-UP. GIVEN PRESENTING SYMPTOMS RECOMMENDED STARTING BACLOFEN 5 MG 1 TABLET NEEDED 3 TIMES A DAY WITH FOLLOW-UP IN 3 MONTHS. PATIENT HAS EXPRESSED UNDERSTANDING OF AND WAS IN AGREEMENT WITH TREATMENT PLAN. GIVEN TIME TO ASK QUESTIONS AND EXPRESS CONCERNS. , ISTOP REGISTRY REVIEWED AND DEMONSTRATES COMPLLIANCE. (REF # [id number] ) BRINGS IN MEDICATIONS WHICH IS APPROPRIATE FOR WHAT WAS DISPENSED. RECENT URINE TOXICOLOGY REVIEWED. NO UNAUTHORIZED MEDICATIONS. NO ILLICIT SUBSTANCES AND PRESCRIBED MEDICATIONS WERE PRESENT. OTHERS START BACLOFEN TABLET, 5 MG, 1 TABLET NEEDED, ORALLY, THREE TIMES A DAY, 30 DAY(S), 90 TABLET CLINICAL NOTES: PRINTED BACLOFEN INFORMATION GIVEN TO PATIENT. PATIENT VERBALIZED UNDERSTANDING. PROCEDURE CODES FA211 ESTABILISHED PATIENT [facility] CHARGE DISPOSITION & COMMUNICATION FOLLOW UP 3 MONTHS (REASON: BACK PAIN NEW MED ) ELECTRONICALLY SIGNED BY ALETHA MALLORY ON 11/29/2020 AT 08:12 AM EDT DISCLAIMER : THIS IS A VISIT SUMMARY EXTRACTED FROM THE [employer] CHART. IT IS NOT A COPY OF THE [employer] PROGRESS NOTE. JAYCEE
== END ==
LOC: M PAIN 11:00
PROVIDERS: ATTEND Family Medicine
DX: M54.42 Lumbago with sciatica, left side (principal); M54.41 Lumbago with sciatica, right side; G89.29 Other chronic pain; E11.40 Type 2 diabetes mellitus with diabetic neuropathy, unspecified; G47.30 Sleep apnea, unspecified; J44.9 Chronic obstructive pulmonary disease, unspecified; Z96.651 Presence of right artificial knee joint; Z88.5 Allergy status to narcotic agent; Z88.8 Allergy status to other drugs, medicaments and biological substances; Z79.891 Long term (current) use of opiate analgesic

== ENCOUNTER → 2021-04-18 | Outpatient (CLI) | payer MEDICARE, MEDICAID ==
--- NOTE | 2021-04-28 23:09 | ECWPNPC ---
PATIENT NAME: AGNIESZKA RAMESH : 1950 GENDER: MALE VISIT DATE: 04/18/2021 DISCHARGE DATE: 04/18/21820 VISIT LOCKED DATE TIME: PHYSICIAN: JOSE LALA MD RESOURCE: JOSE LALA MD REASON FOR APPOINTMENT 1. MED MGNT HISTORY OF PRESENT ILLNESS DEPRESSION SCREENING: PHQ-2 (2015 EDITION) LITTLE INTEREST OR PLEASURE IN DOING THINGS?NOT AT ALL FEELING DOWN, DEPRESSED, OR HOPELESS?NOT AT ALL TOTAL SCORE0 GENERAL: 71-YEAR-OLD MALE PATIENT WITH A HISTORY OF CHRONIC LOW BACK AND LEG PAIN. THE PATIENT HAS SUFFERED FROM THIS CONDITION FOR MANY YEARS. HE HAS A HISTORY OF POLIO. THE PATIENT DESCRIBES THE PAIN ACHING, SEVERE AND INTERMITTENT WITH A PAIN SCORE RANGING FROM 5-10/10. THE PAIN INCREASES WITH ACTIVITIES. HE ALSO HAS SOME SHOULDER PAIN. HE HAS BEEN CONTROLLING THE PAIN WITH MAINLY MEDICATIONS INCLUDING MS CONTIN, OXYCODONE. HE HAS MULTIPLE ALLERGIES TO MANY MEDICATIONS THAT HE HAS TRIED IN THE PAST. HE FEELS THAT THESE MEDICATIONS HELP HIM CONTROL HIS PAIN AND ALLOWS HIM TO FUNCTION. FALL RISK SCREENING: SCREENING : NO FALLS REPORTED IN THE LAST YEAR. PAIN SCREENING: PATIENT HAS A COMPLAINT OF ACUTE OR CHRONIC PAIN :YES LOCATION OF PAIN:BOTH SHOULDERS, LOW BACK, LEG(S) INTENSITY OF PAIN (SCALE OF 1 TO 10):5 BACK 5/10LEGS 4/10 WHAT DOES YOUR PAIN FEEL LIKE:ACHING DURATION:INTERMITTENT PAIN IS INCREASED BY:PROLONGED STANDING PAIN IS DECREASED BY:USE OF PAIN MEDICATIONS NURSING NOTE: -. PAIN CENTER INTAKE QUESTIONS: DO YOU HAVE A HISTORY OF MRSA? :NO DO YOU TAKE A BLOOD THINNERS? :NO DO YOU HAVE ANY BLEEDING DISORDERS? :NO ANY NEW NUMBNESS OR WEAKNESS IN YOUR LEGS OR ARMS? :NO ANY PACEMAKER,DEFIBRILLATOR, OR DORSAL COLUMN STIMULATOR? :NO DO YOU HAVE ANY RASHES OR OPEN SORES? :NO ARE YOU ALLERGIC TO IV DYE? :YES DRY SKIN ON SHINS ARE YOU DIABETIC? :YES ANY NEW PROBLEMS WITH YOUR MEDICATIONS? :NO HAVE YOU RECEIVED A VACCINE IN THE PAST 30 DAYS? :NO DO YOU PLAN TO RECEIVE A VACCINE IN THE NEXT 21 DAYS? :NO DO YOU NEED ANY PRESCRIPTION? :YES OXYCODONE, MORPHINE DO YOU TAKE ANY IMMUNOSUPPRESSIVE MEDICATIONS? :NO DO YOU HAVE ANY KIDNEY OR LIVER DISEASE? :YES ELEVATED LIVER ENZYMES, RIGHT KIDNEY ABNORMALITY NOTED ON ULTRASOUND IS THERE A CHANCE YOU COULD BE ? :NO ARE YOU BREAST FEEDING? :NO CURRENT MEDICATIONS TAKING ASPIR-81 81 MG TABLET DELAYED RELEASE 1 TABLET ORALLY ONCE A DAY TAKING FOLIC ACID 1 MG TABLET 1 TABLET ORALLY ONCE A DAY TAKING LABETALOL HCL 200 MG TABLET ORALLY BID TAKING NITROSTAT 0.4 MG TABLET SUBLINGUAL SUBLINGUAL PRN TAKING LISINOPRIL 20 MG TABLET 1 TABLET ORALLY ONCE A DAY TAKING LIPITOR 40 MG TABLET 1 TABLET ORALLY ONCE A DAY TAKING OMEPRAZOLE 20 MG CAPSULE DELAYED RELEASE 1 CAPSULE ORALLY ONCE A DAY TAKING LORATADINE 10 MG TABLET 1 TABLET ORALLY ONCE A DAY TAKING CLOBETASOL PROP OINT-COAL TAR 0.05 & 2.3 % KIT TOPICALLY DAILY DIRECTED TAKING BISACODYL 10 MG TABLET DELAYED RELEASE 1 TABLET NEEDED ORALLY TID PRN TAKING FUROSEMIDE 20 MG TABLET 3 TABLETS ORALLY TWICE DAILY TAKING FLONASE 50 MCG/ACT SUSPENSION 1 SPRAY IN EACH NOSTRIL NASALLY ONCE A DAY TAKING HUMALOG 100 UNIT/ML SOLUTION 35 UNITS SUBCUTANEOUS THREE TIMES DAILY TAKING LANTUS 100 UNIT/ML SOLUTION 72 UNITS SUBCUTANEOUS BEFORE BREAKFAST AND DINNER TAKING VITAMIN B12 3000 MCG/ML INTRAMUSCULARLY 2X/WEEK TAKING VITAMIN D 2000 UNIT TABLET ORALLY DAILY TAKING FLUOCINOLONE CREAM & EMOLLIENT 0.025 % KIT EXTERNALLY TWICE DAILY NEEDED TAKING ZOFRAN ODT 4 MG TABLET DISPERSIBLE 1 TABLET ON THE TONGUE AND ALLOW TO DISSOLVE ORALLY EVERY 8 HRS PRN NAUSEA TAKING MECLIZINE HCL 12.5 MG TABLET 1 TAB ORALLY ONCE A DAY NEEDED TAKING AMITRIPTYLINE HCL 100 MG TABLET 1 TABLET AT BEDTIME ORALLY ONCE A DAY TAKING OXYCODONE HCL 5 MG TABLET 1-2 ORALLY EVERY 4 HOURS NEEDED MDD=8 TAKING MS CONTIN 30 MG TABLET EXTENDED RELEASE 1 TABLET ORALLY EVERY 12 HRS MDD2 NOT-TAKING RITALIN 15 MG TABLET 1 TABLET ORALLY TWICE A DAY NOT-TAKING BACLOFEN 5 MG TABLET 1 TABLET NEEDED ORALLY THREE TIMES A DAY NOT-TAKING MAY USE CBD OIL ORALLY DAILY, NOTES: " NOT USING" NOT-TAKING BUTRANS 10 MCG/HR PATCH WEEKLY 1 PATCH TO SKIN TRANSDERMAL APPLY 1 PATCH TO SKIN ONCE PER WEEK MDD=1 MEDICATION LIST REVIEWED AND RECONCILED WITH THE PATIENT PAST MEDICAL HISTORY POLIO HEART PROBLEMS HIGH BLOOD PRESSURE ANGINA DIABETES 1992 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 THICKENING COPD VERTIGO 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 OTHER CHRONIC PAIN ALLERGIES DEMEROL: NAUSEA/VOMITING - SIDE EFFECTS NEURONTIN: SWELLING IN HANDS - ALLERGY BEXXAR: SWELLING IN ARMS AND HANDS - ALLERGY GABITRIL: SWELLING ALL OVER BODY - ALLERGY LYRICA: SWELLING - ALLERGY NIACIN: STOMACH PAIN - SIDE EFFECTS DOXAZOSIN MESYLATE: HANDS SWELL - ALLERGY ADVICOR: STOMACH PAIN - SIDE EFFECTS FLOMAX: BLURRED VISION - ALLERGY UROXATRAL: ANKLES SWELL - ALLERGY FENTANYL: SWEATS, SHAKES, CHILLS, NUMBNESS, TINGLING, LOSS OF APPETITE, LOSS OF SLEEP - ALLERGY CARISOPRODOL: SWELLING, MOOD SWINGS - ALLERGY PAROXETINE HCL: SWELLING - ALLERGY VENLAFAXINE HCL: SWELLING, TIGHTNESS IN CHEST - ALLERGY DULOXETINE HCL: RESTLESS LEG WORSE - ALLERGY PRAMIPEXOLE-MIRAPEX: HALLUCINATIONS - SIDE EFFECTS RAPAFLO: BLADDER PROBLEMS - ALLERGY TRADJENTA: MUSCLE PAIN, SPASAMS AND WEAKNESS - CONTRAINDICATION POTASSIUM: NAUSEA, DIARRHEA - SIDE EFFECTS MAG-OXIDE: VERTIGO - SIDE EFFECTS INVOKANA: HALLUCINATIONS - SIDE EFFECTS SOCIAL HISTORY GENERAL: TOBACCO USE ARE YOU A:FORMER SMOKER LATEX QUESTIONNAIRE LATEX ALLERGY : HAVE YOU EVER DEVELOPED ANY TYPE OF REACTION AFTER HANDLING LATEX PRODUCTS SUCH RUBBER GLOVES, CONDOMS, DIAPHRAGMS, BALLOONS, SOCKS, OR UNDERWEAR?NO LATEX ALLERGY : HAVE YOU EVER DEVELOPED ANY TYPE OF REACTION DURING OR AFTER DENTAL APPOINTMENT, VAGINAL/RECTAL EXAMINATION, SURGICAL PROCEDURE, OR ANY OTHER EXPOSURE?NO LATEX RISK : HAVE YOU EVER HAD ANY DIFFICULTY BREATHING OR HIVES AFTER EATING OR HANDLING ANY FRUITS, OR VEGETABLES; SUCH KIWI, BANANAS, STONE FRUITS, OR CHESTNUTSNO LATEX RISK : DO YOU HAVE A PREVIOUS PERSONAL HISTORY OF MORE THAN NINE SURGERIES, SPINA BIFIDA, OR REPEATED CATHERIZATIONS? YES - PLEASE INDICATE : > 9 SURGERIES, REPEATED CATHETERIZATIONS LATEX RISK : ARE YOU FREQUENTLY EXPOSED TO LATEX PRODUCTS IN YOUR OCCUPATION?NO DATE ASKED : 11/27/2020 ALCOHOL USE: NO. ALCOHOL SCREENING DID YOU HAVE A DRINK CONTAINING ALCOHOL IN THE PAST YEAR?NO POINTS0 INTERPRETATIONNEGATIVE RECREATIONAL DRUG USE DRUG USE?NO CAFFEINE CAFFEINE USE?YES HOW OFTEN AND HOW MUCH? 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?NO DOMESTIC VIOLENCE DO YOU FEEL SAFE IN YOUR ENVIRONMENT?YES TODAY'S VISITNOTES 12/08/2019 PATIENT DESCRIBES PAIN :ACHING, HAVE IT ALL THE TIME, TENDER, THROBBING, SORE, SHOOTING FROM 0-10, WHAT LEVEL IS YOUR PAIN TODAY?4 PRECIPITATING FACTORS MOVING ALLEVIATING FACTORS MEDS, REST IMPACT ON FUNCTION LIMITS HIS ABILITY TO DO THINGS - HAS THE PATIENT BEEN EDUCATED REGARDING HIS/HER PLAN OF CARE?YES HAS THE PATIENT BEEN EDUCATED REGARDING PAIN, THE RISK FOR PAIN, THE IMPORTANCE OF EFFECTIVE PAIN MANAGEMENT, AND THE PAIN ASSESSMENT PROCESS?YES ADVANCE DIRECTIVE ADVANCE DIRECTIVE DISCUSSED WITH PATIENT:YES 12/08/2019 STATES HE HAS A HCP [phone] 2. DAUGHTER-ELIZABETH HAMMONDS [phone] REVIEW OF SYSTEMS CONSTITUTIONAL: ANY RECENT FEVER NO . CHILLS NO . WEIGHT CHANGE OF UNKNOWN REASONS NO . GASTROENTEROLOGY: NEW UNEXPLAINABLE CHANGES IN BOWEL CONTROL NO . CONSTIPATION NO . GENITOURINARY: ANY NEW CHANGE IN BLADDER CONTROL? NO . NEUROLOGY: NEW ONSET DIZZINESS OR NEUROLOGICAL CHANGES NOT MENTIONED NO . NEW NUMBNESS OR PAIN PATTERNS NOT MENTIONED AND PERTINENT TO TODAY'S VISIT NO . CARDIOLOGY: NEW CHEST PRESSURE NO . PATIENT DENIES NO . RESPIRATORY: UNEXPLAINABLE COUGH NO . NEW SHORTNESS OF BREATH NO . VITAL SIGNS WT 243.4 LBS, WT-KG 110.41 KG, HT 70 IN, BMI 34.92 INDEX, BP 246/114 MM HG, REPEAT BP 180/90 MM HG, HR 91 /MIN, RR 18 /MIN, TEMP 96.6 F, OXYGEN SAT % 96%, SAFE IN ENV? (Y/N) YES, NA INITIALS AW / 1623 REVIEWED. STATES FORGOT TO TAKE MORNING BLOOD PRESSURE MEDICATION. TOOK AT APPROXIMATELY 1615 INSTEAD OF AT BREAKFAST. DENIES HEADACHE, NO DOUBLE VISION. Sherman WHELAN RN. EXAMINATION GENERAL EXAMINATION: THE PATIENT IS ALERT, ORIENTED TIMES THREE AND COOPERATIVE. HE IS IN A WHEELCHAIR. I ASKED HIM TO STAND UP. WHEN HE STANDS, HIS GAIT IS A LITTLE UNSTEADY. HE HAS TENDERNESS IN THE BACK IN THE PARASPINAL MUSCLE GROUP. I CAN NOTICE SOME MUSCLE WASTING IN THE UPPER EXTREMITIES ASSOCIATED WITH HIS POLIO. I DO NOT HAVE ANY IMAGING STUDIES. I DO HAVE THE URINE TOX DONE IN OCTOBER WHICH IS CONCORDANT AND ALSO THE ISTOP NUMBER [id number]. I CAN VERIFY THAT HE IS USING THE MEDICATIONS. HE HAS BEEN USING THE MEDIATIONS FOR MORE THAN A YEAR. 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 OPIATE ANALGESIC - Z79.891 LUMBAGO WITH SCIATICA, LEFT SIDE - M54.42 LUMBAGO WITH SCIATICA, RIGHT SIDE - M54.41 SHOULDER PAIN - M25.519 TREATMENT RESIDENTIAL (CURRENT) USE OF OPIATE ANALGESIC CONTINUE OXYCODONE HCL TABLET, 5 MG, 1-2, ORALLY, EVERY 4 HOURS NEEDED MDD=8, 30 DAYS, 180, REFILLS 0 CONTINUE MS CONTIN TABLET EXTENDED RELEASE, 30 MG, 1 TABLET, ORALLY, EVERY 12 HRS MDD2, 30 DAYS, 60, REFILLS 0 CONTINUE AMITRIPTYLINE HCL TABLET, 50 MG, 1 TABLET AT BEDTIME, ORALLY FOR PAIN, ONCE A DAY, 30 DAYS, 30 TABLET, REFILLS 2 START OXYCODONE HCL TABLET, 5 MG, 1 TO 2 TABLET NEEDED, ORALLY FOR PAIN, EVERY 6 HRS MDD8, 30 DAYS, 220, REFILLS 0 LAB: HAIR TEST GROUP REKHAVALENCIA R 04/18/2021 5:17:49 PM > MS CONTIN 04/18/21, OXYCODONE 04/18/21 LUMBAGO WITH SCIATICA, LEFT SIDE [facility] MRI LUMBAR W/O CONTRAST (CPT 30035)[id number],NICOLE 04/25/2021 12:00:17 PM > MRI LUMBAR SPINE W/O CONTRAST CPT 69247 WAS APPROVED. AUTH # [id number] VALID FROM 04/25/21-10/22/21. CLINICAL NOTES: I DISCUSSED ALTERNATIVES WITH MR. RAMESH. I WOULD LIKE TO ORDER A LUMBAR MRI. I WOULD LIKE TO SEE IF THERE IS SOMETHING I CAN DO TO HELP HIM WITH THIS LEG AND BACK PAIN WHICH IS THE MAIN SOURCE OF HIS PAIN. DEPENDING ON THE MRI, I MAY CONSIDER DOING SOME INTERVENTIONS AND OTHER MODALITIES SUCH PHYSICAL THERAPY, WHICH HE HAS PROBABLY DONE BEFORE. BUT IF WE DO AN INJECTION, AND HIS PAIN CONTROL GETS BETTER, MAYBE HE CAN RESUME MORE ACTIVITIES. IN TERMS OF THE MEDICATIONS, I SHARED WITH AGNIESZKA MY CONCERN THAT HE IS USING AN IMPORTANT AMOUNT OF OPIOIDS. SO WE AGREE, INSTEAD OF GIVING 240 OF THE OXYCODONE, FOR 10 DAYS, HE IS GOING TO USE ONLY 6 INSTEAD OF 8. SO I WILL GIVE HIM A REFILL WITH 180 TABLETS. FOR 10 DAYS HE CAN ONLY USE 6 AND THE OTHER 20 DAYS, HE CAN USE 8. WE WILL SEE HOW IT GOES. I WILL LIKE TO REDUCE THESE MORE. ALSO, I WILL DO A HAIR TEST TODAY. THE PATIENT HAS BEEN WITH US FOR MANY YEARS. SO AT SOME POINT, I WILL HAVE A CONVERSATION WITH THE PRIMARY TO SEE HOW HE FEELS ABOUT THE PRESCIROPTINO ISSUE BUT FOR NOW WE WILL CONTINUE WITH IT. THE PATIENT IS USING 100 MG OF AMITRIPTYLINE AT NIGHT. I EXPLAINED TO THE PATIENT ABOUT THE ASSOCIATION OF AMITRIPTYLINE WITH CARDIAC EVENTS AND ARRHYTHMIA. IT IS A MEDICATIONS THAT I WOULD LIKE TO SLOWLY REDUCE AND ELIMINATE. WE CAN TRY OTHER MEDICATIONS SUCH A MUSCLE RELAXER OR OTHER MEDICATIONS TO HELP HIM SLEEP. THIS MEDICATIONS IS USED LESS AND LESS IN CHRONIC PAIN AND I WANT TO MAKE SURE THAT WE ARE PROTECTING HIS HEART. I WILL SEE HIM IN A FOLLOW UP IN 1 OR 2 MONTHS TO SEE HOW HE IS DOING AND WE WILL TAKE IT FROM THERE. I WOULD LIKE TO SEE HIM AFTER THE MRI IS DONE. THE PATIENT REPORTS UNDERSTANDING AND AGREES WITH THE PLAN. I, SANDY MORGAN, DOCUMENTED THE ABOVE INFORMATION ACTING A SCRIBE FOR DR. LALA. I HAVE REVIEWED THE ABOVE DOCUMENT, WRITTEN BY SANDY MORGAN, CASTING ASSISTANT, AND I VERIFY THAT IT IS ACCURATE. VISIT CODES PROCEDURE CODES FA211 ESTABILISHED PATIENT [facility] CHARGE 67546 OFFICE/OUTPATIENT VISIT EST DISPOSITION & COMMUNICATION FOLLOW UP REQUEST AUTH FOR MRI LUMBAR (REASON: REQUEST AUTH FOR MRI LUMBAR ) ELECTRONICALLY SIGNED BY JOSE LALA MD, MD ON 04/28/2021 AT 07:19 PM EDT DISCLAIMER : THIS IS A VISIT SUMMARY EXTRACTED FROM THE [employer] CHART. IT IS NOT A COPY OF THE [employer] PROGRESS NOTE. JAYCEE
== END ==
LOC: M PAIN 15:00
PROVIDERS: ATTEND Anesthesiology
DX: M54.42 Lumbago with sciatica, left side (principal); M54.41 Lumbago with sciatica, right side; M25.519 Pain in unspecified shoulder; G14 Postpolio syndrome; E11.40 Type 2 diabetes mellitus with diabetic neuropathy, unspecified; G89.29 Other chronic pain; J44.9 Chronic obstructive pulmonary disease, unspecified; Z79.891 Long term (current) use of opiate analgesic; Z87.891 Personal history of nicotine dependence; Z79.82 Long term (current) use of aspirin; Z79.4 Long term (current) use of insulin; Z79.899 Other long term (current) drug therapy; Z88.8 Allergy status to other drugs, medicaments and biological substances

== ENCOUNTER → 2021-07-18 | Outpatient (CLI) | payer MEDICARE, MEDICAID | LOC: M PAIN 10:00 | PROVIDERS: ATTEND Anesthesiology | DX: M51.16 Intervertebral disc disorders with radiculopathy, lumbar region (principal); E11.9 Type 2 diabetes mellitus without complications; J44.9 Chronic obstructive pulmonary disease, unspecified; G89.29 Other chronic pain; Z79.891 Long term (current) use of opiate analgesic; Z79.82 Long term (current) use of aspirin; Z79.899 Other long term (current) drug therapy; Z79.4 Long term (current) use of insulin; Z88.8 Allergy status to other drugs, medicaments and biological substances; Z88.5 Allergy status to narcotic agent ==

== ENCOUNTER → 2021-12-19 | Outpatient (CLI) | payer MEDICARE, MEDICAID | LOC: M PAIN 11:30 | PROVIDERS: ATTEND Anesthesiology | DX: M51.16 Intervertebral disc disorders with radiculopathy, lumbar region (principal); M48.061 Spinal stenosis, lumbar region without neurogenic claudication; G89.29 Other chronic pain; E11.40 Type 2 diabetes mellitus with diabetic neuropathy, unspecified; J44.9 Chronic obstructive pulmonary disease, unspecified; Z96.651 Presence of right artificial knee joint; Z87.891 Personal history of nicotine dependence; Z88.5 Allergy status to narcotic agent; Z88.8 Allergy status to other drugs, medicaments and biological substances; Z79.4 Long term (current) use of insulin; Z79.82 Long term (current) use of aspirin; Z79.891 Long term (current) use of opiate analgesic; Z79.899 Other long term (current) drug therapy ==

== ENCOUNTER → 2022-02-13 | Outpatient (CLI) | payer MEDICARE, MEDICAID | LOC: M PAIN 13:45 | PROVIDERS: ATTEND Anesthesiology | DX: M48.062 Spinal stenosis, lumbar region with neurogenic claudication (principal); M54.16 Radiculopathy, lumbar region; R26.81 Unsteadiness on feet; G14 Postpolio syndrome; I20.9 Angina pectoris, unspecified; E11.9 Type 2 diabetes mellitus without complications; J44.9 Chronic obstructive pulmonary disease, unspecified; R42 Dizziness and giddiness; Z85.51 Personal history of malignant neoplasm of bladder; M54.41 Lumbago with sciatica, right side; M54.42 Lumbago with sciatica, left side; G89.29 Other chronic pain; Z79.899 Other long term (current) drug therapy; Z86.14 Personal history of Methicillin resistant Staphylococcus aureus infection; Z87.891 Personal history of nicotine dependence; Z79.891 Long term (current) use of opiate analgesic; Z88.8 Allergy status to other drugs, medicaments and biological substances; Z88.5 Allergy status to narcotic agent ==

== ENCOUNTER → 2022-06-25 | Outpatient (CLI) | payer MEDICARE, MEDICAID | LOC: M PAIN 10:45 | PROVIDERS: ATTEND Anesthesiology | DX: M54.16 Radiculopathy, lumbar region (principal); M96.1 Postlaminectomy syndrome, not elsewhere classified; R03.0 Elevated blood-pressure reading, without diagnosis of hypertension; I20.9 Angina pectoris, unspecified; E11.40 Type 2 diabetes mellitus with diabetic neuropathy, unspecified; Z86.12 Personal history of poliomyelitis; J44.9 Chronic obstructive pulmonary disease, unspecified; R42 Dizziness and giddiness; Z85.51 Personal history of malignant neoplasm of bladder; M54.41 Lumbago with sciatica, right side; M54.42 Lumbago with sciatica, left side; G89.29 Other chronic pain; Z86.14 Personal history of Methicillin resistant Staphylococcus aureus infection; Z79.83 Long term (current) use of bisphosphonates; Z79.4 Long term (current) use of insulin; Z79.891 Long term (current) use of opiate analgesic; Z79.899 Other long term (current) drug therapy; Z88.8 Allergy status to other drugs, medicaments and biological substances ==

== ENCOUNTER → 2022-08-06 | Outpatient (CLI) | payer MEDICARE, MEDICAID | LOC: M PAIN 13:00 | PROVIDERS: ATTEND Anesthesiology | DX: M54.50 Low back pain, unspecified (principal); M47.816 Spondylosis without myelopathy or radiculopathy, lumbar region; I20.9 Angina pectoris, unspecified; E11.40 Type 2 diabetes mellitus with diabetic neuropathy, unspecified; R03.0 Elevated blood-pressure reading, without diagnosis of hypertension; G14 Postpolio syndrome; J44.9 Chronic obstructive pulmonary disease, unspecified; R42 Dizziness and giddiness; Z85.51 Personal history of malignant neoplasm of bladder; G89.29 Other chronic pain; Z86.14 Personal history of Methicillin resistant Staphylococcus aureus infection; Z87.891 Personal history of nicotine dependence; Z79.82 Long term (current) use of aspirin; Z79.4 Long term (current) use of insulin; Z79.891 Long term (current) use of opiate analgesic; Z79.899 Other long term (current) drug therapy; Z88.8 Allergy status to other drugs, medicaments and biological substances ==

== ENCOUNTER → 2022-11-06 | Outpatient (CLI) | payer MEDICARE, MEDICAID | LOC: M PAIN 17:30 | PROVIDERS: ATTEND Anesthesiology | DX: M51.16 Intervertebral disc disorders with radiculopathy, lumbar region (principal); I20.9 Angina pectoris, unspecified; E11.9 Type 2 diabetes mellitus without complications; J44.9 Chronic obstructive pulmonary disease, unspecified; G89.29 Other chronic pain; G14 Postpolio syndrome; Z86.14 Personal history of Methicillin resistant Staphylococcus aureus infection; Z87.891 Personal history of nicotine dependence; Z79.82 Long term (current) use of aspirin; Z79.4 Long term (current) use of insulin; Z79.891 Long term (current) use of opiate analgesic; Z79.899 Other long term (current) drug therapy; Z85.51 Personal history of malignant neoplasm of bladder; Z88.8 Allergy status to other drugs, medicaments and biological substances ==

== ENCOUNTER → 2022-12-19 | Outpatient (CLI) | payer MEDICARE, MEDICAID, OTHER | LOC: M PAIN 15:30 | PROVIDERS: ATTEND Anesthesiology | DX: M54.16 Radiculopathy, lumbar region (principal); M79.10 Myalgia, unspecified site; M79.18 Myalgia, other site; E11.9 Type 2 diabetes mellitus without complications; G14 Postpolio syndrome; J44.9 Chronic obstructive pulmonary disease, unspecified; G89.29 Other chronic pain; Z79.891 Long term (current) use of opiate analgesic; Z87.891 Personal history of nicotine dependence; Z86.12 Personal history of poliomyelitis; Z79.4 Long term (current) use of insulin; Z79.899 Other long term (current) drug therapy; Z88.8 Allergy status to other drugs, medicaments and biological substances ==

== ENCOUNTER → 2023-01-30 | Outpatient (CLI) | payer MEDICARE, MEDICAID | LOC: M PAIN 13:45 | PROVIDERS: ATTEND Nurse Practitioner Family | DX: G14 Postpolio syndrome (principal); M47.816 Spondylosis without myelopathy or radiculopathy, lumbar region; G89.29 Other chronic pain; E11.40 Type 2 diabetes mellitus with diabetic neuropathy, unspecified; I10 Essential (primary) hypertension; J44.9 Chronic obstructive pulmonary disease, unspecified; Z86.14 Personal history of Methicillin resistant Staphylococcus aureus infection; Z96.651 Presence of right artificial knee joint; Z87.891 Personal history of nicotine dependence; Z88.5 Allergy status to narcotic agent; Z88.8 Allergy status to other drugs, medicaments and biological substances; Z79.4 Long term (current) use of insulin; Z79.82 Long term (current) use of aspirin; Z79.891 Long term (current) use of opiate analgesic; Z79.899 Other long term (current) drug therapy ==

== ENCOUNTER → 2023-03-11 | Outpatient (CLI) | payer MEDICARE, MEDICAID | LOC: M PAIN 13:00 | PROVIDERS: ATTEND Anesthesiology | DX: Z51.81 Encounter for therapeutic drug level monitoring (principal); Z79.891 Long term (current) use of opiate analgesic; M51.16 Intervertebral disc disorders with radiculopathy, lumbar region; M79.18 Myalgia, other site; G14 Postpolio syndrome; M48.07 Spinal stenosis, lumbosacral region; E11.9 Type 2 diabetes mellitus without complications; J44.9 Chronic obstructive pulmonary disease, unspecified; M54.31 Sciatica, right side; M54.32 Sciatica, left side; Z87.891 Personal history of nicotine dependence; Z79.4 Long term (current) use of insulin; Z79.82 Long term (current) use of aspirin; Z79.899 Other long term (current) drug therapy; Z88.8 Allergy status to other drugs, medicaments and biological substances ==

== ENCOUNTER → 2023-04-15 | Outpatient (CLI) | payer MEDICARE, MEDICAID | LOC: M PAIN 13:30 | PROVIDERS: ATTEND Anesthesiology | DX: M47.816 Spondylosis without myelopathy or radiculopathy, lumbar region (principal); M51.16 Intervertebral disc disorders with radiculopathy, lumbar region; G89.29 Other chronic pain; E11.40 Type 2 diabetes mellitus with diabetic neuropathy, unspecified; G47.30 Sleep apnea, unspecified; J44.9 Chronic obstructive pulmonary disease, unspecified; Z86.14 Personal history of Methicillin resistant Staphylococcus aureus infection; Z87.891 Personal history of nicotine dependence; Z88.5 Allergy status to narcotic agent; Z88.8 Allergy status to other drugs, medicaments and biological substances; Z79.4 Long term (current) use of insulin; Z79.82 Long term (current) use of aspirin; Z79.891 Long term (current) use of opiate analgesic; Z79.899 Other long term (current) drug therapy ==

== ENCOUNTER → 2023-05-06 | Outpatient (CLI) | payer MEDICARE, MEDICAID | LOC: M PAIN 09:45 | PROVIDERS: ATTEND Anesthesiology | DX: M47.816 Spondylosis without myelopathy or radiculopathy, lumbar region (principal); G89.29 Other chronic pain; G47.30 Sleep apnea, unspecified; I10 Essential (primary) hypertension; J44.9 Chronic obstructive pulmonary disease, unspecified; Z86.14 Personal history of Methicillin resistant Staphylococcus aureus infection; Z96.651 Presence of right artificial knee joint; Z87.891 Personal history of nicotine dependence; Z88.5 Allergy status to narcotic agent; Z88.8 Allergy status to other drugs, medicaments and biological substances; Z79.4 Long term (current) use of insulin; Z79.82 Long term (current) use of aspirin; Z79.891 Long term (current) use of opiate analgesic; Z79.899 Other long term (current) drug therapy ==

== ENCOUNTER → 2023-08-07 | Outpatient (CLI) | payer MEDICARE, MEDICAID | LOC: M PAIN 11:45 | PROVIDERS: ATTEND Nurse Practitioner Family | DX: M47.816 Spondylosis without myelopathy or radiculopathy, lumbar region (principal); Z79.891 Long term (current) use of opiate analgesic; E11.40 Type 2 diabetes mellitus with diabetic neuropathy, unspecified; J44.9 Chronic obstructive pulmonary disease, unspecified; M54.41 Lumbago with sciatica, right side; M54.42 Lumbago with sciatica, left side; G89.29 Other chronic pain; G14 Postpolio syndrome; H26.9 Unspecified cataract; Z87.891 Personal history of nicotine dependence; Z79.4 Long term (current) use of insulin; Z79.899 Other long term (current) drug therapy; Z88.8 Allergy status to other drugs, medicaments and biological substances ==

== ENCOUNTER → 2023-09-08 | Outpatient (CLI) | payer MEDICARE, MEDICAID | LOC: M PAIN 16:00 | PROVIDERS: ATTEND Nurse Practitioner Family | DX: M47.816 Spondylosis without myelopathy or radiculopathy, lumbar region (principal); Z79.891 Long term (current) use of opiate analgesic; G89.29 Other chronic pain; E11.9 Type 2 diabetes mellitus without complications; J44.9 Chronic obstructive pulmonary disease, unspecified; M54.41 Lumbago with sciatica, right side; M54.42 Lumbago with sciatica, left side; Z87.891 Personal history of nicotine dependence; Z79.82 Long term (current) use of aspirin; Z79.4 Long term (current) use of insulin; Z79.899 Other long term (current) drug therapy; Z88.8 Allergy status to other drugs, medicaments and biological substances ==

== ENCOUNTER → 2023-10-26 | Outpatient (CLI) | payer MEDICARE, MEDICAID | LOC: M PAIN 11:00 | PROVIDERS: ATTEND Nurse Practitioner Family | DX: M47.816 Spondylosis without myelopathy or radiculopathy, lumbar region (principal); Z79.891 Long term (current) use of opiate analgesic; G89.29 Other chronic pain; E11.40 Type 2 diabetes mellitus with diabetic neuropathy, unspecified; J44.9 Chronic obstructive pulmonary disease, unspecified; M54.41 Lumbago with sciatica, right side; M54.42 Lumbago with sciatica, left side; G14 Postpolio syndrome; Z87.891 Personal history of nicotine dependence; Z79.82 Long term (current) use of aspirin; Z79.4 Long term (current) use of insulin; Z79.899 Other long term (current) drug therapy; Z88.8 Allergy status to other drugs, medicaments and biological substances ==

== ENCOUNTER → 2023-11-24 | Outpatient (CLI) | payer MEDICARE, MEDICAID | LOC: M TMPAIN 14:00 → M PAIN 14:00 | PROVIDERS: ATTEND Nurse Practitioner Family | DX: M47.816 Spondylosis without myelopathy or radiculopathy, lumbar region (principal); Z79.891 Long term (current) use of opiate analgesic; E11.9 Type 2 diabetes mellitus without complications; G14 Postpolio syndrome; J44.9 Chronic obstructive pulmonary disease, unspecified; G89.29 Other chronic pain; Z86.14 Personal history of Methicillin resistant Staphylococcus aureus infection; Z87.891 Personal history of nicotine dependence; Z79.4 Long term (current) use of insulin; Z79.82 Long term (current) use of aspirin; Z79.899 Other long term (current) drug therapy; Z88.8 Allergy status to other drugs, medicaments and biological substances ==

== ENCOUNTER → 2023-12-28 | Outpatient (CLI) | payer MEDICARE, MEDICAID | LOC: M PAIN 15:00 | PROVIDERS: ATTEND Nurse Practitioner Family | DX: M47.816 Spondylosis without myelopathy or radiculopathy, lumbar region (principal); Z79.891 Long term (current) use of opiate analgesic; G89.29 Other chronic pain; E11.9 Type 2 diabetes mellitus without complications; J44.9 Chronic obstructive pulmonary disease, unspecified; R42 Dizziness and giddiness; M54.41 Lumbago with sciatica, right side; M54.42 Lumbago with sciatica, left side; J43.9 Emphysema, unspecified; G14 Postpolio syndrome; Z87.891 Personal history of nicotine dependence; Z79.4 Long term (current) use of insulin; Z79.82 Long term (current) use of aspirin; Z79.899 Other long term (current) drug therapy; Z88.5 Allergy status to narcotic agent; Z88.8 Allergy status to other drugs, medicaments and biological substances ==

== ENCOUNTER → 2024-01-29 | Outpatient (CLI) | payer MEDICARE, MEDICAID | LOC: M PAIN 11:30 | PROVIDERS: ATTEND Nurse Practitioner Family | DX: M47.816 Spondylosis without myelopathy or radiculopathy, lumbar region (principal); Z79.891 Long term (current) use of opiate analgesic; G89.29 Other chronic pain; E11.40 Type 2 diabetes mellitus with diabetic neuropathy, unspecified; J44.9 Chronic obstructive pulmonary disease, unspecified; M54.41 Lumbago with sciatica, right side; M54.42 Lumbago with sciatica, left side; G14 Postpolio syndrome; J43.9 Emphysema, unspecified; Z87.891 Personal history of nicotine dependence; Z79.4 Long term (current) use of insulin; Z79.82 Long term (current) use of aspirin; Z79.899 Other long term (current) drug therapy; Z88.8 Allergy status to other drugs, medicaments and biological substances ==

== ENCOUNTER → 2024-02-29 | Outpatient (CLI) | payer MEDICARE, MEDICAID | LOC: M TMPAIN 14:30 → M PAIN 14:30 | PROVIDERS: ATTEND Nurse Practitioner Family | DX: M47.816 Spondylosis without myelopathy or radiculopathy, lumbar region (principal); Z79.891 Long term (current) use of opiate analgesic; I10 Essential (primary) hypertension; E11.9 Type 2 diabetes mellitus without complications; G47.30 Sleep apnea, unspecified; Z99.89 Dependence on other enabling machines and devices; J44.9 Chronic obstructive pulmonary disease, unspecified; Z87.891 Personal history of nicotine dependence; Z79.2 Long term (current) use of antibiotics; Z79.3 Long term (current) use of hormonal contraceptives; Z79.51 Long term (current) use of inhaled steroids; Z79.82 Long term (current) use of aspirin; Z79.899 Other long term (current) drug therapy; Z88.1 Allergy status to other antibiotic agents; Z88.3 Allergy status to other anti-infective agents; Z88.5 Allergy status to narcotic agent; Z88.8 Allergy status to other drugs, medicaments and biological substances ==

== ENCOUNTER → 2024-04-04 | Outpatient (CLI) | payer MEDICARE, MEDICAID | LOC: M TMPAIN 14:00 → M PAIN 14:00 | PROVIDERS: ATTEND Nurse Practitioner Family | DX: M47.816 Spondylosis without myelopathy or radiculopathy, lumbar region (principal); Z79.891 Long term (current) use of opiate analgesic; G89.29 Other chronic pain; E11.40 Type 2 diabetes mellitus with diabetic neuropathy, unspecified; J44.9 Chronic obstructive pulmonary disease, unspecified; M54.41 Lumbago with sciatica, right side; M54.42 Lumbago with sciatica, left side; J43.9 Emphysema, unspecified; Z85.51 Personal history of malignant neoplasm of bladder; Z79.899 Other long term (current) drug therapy ==

== ENCOUNTER → 2024-05-06 | Outpatient (CLI) | payer OTHER, MEDICAID | LOC: M PAIN 11:15 | PROVIDERS: ATTEND Nurse Practitioner Family | DX: M47.816 Spondylosis without myelopathy or radiculopathy, lumbar region (principal); Z79.891 Long term (current) use of opiate analgesic; G89.29 Other chronic pain; M54.50 Low back pain, unspecified; E11.40 Type 2 diabetes mellitus with diabetic neuropathy, unspecified; J43.9 Emphysema, unspecified; G14 Postpolio syndrome; Z87.891 Personal history of nicotine dependence; Z79.4 Long term (current) use of insulin; Z79.82 Long term (current) use of aspirin; Z79.899 Other long term (current) drug therapy; Z88.8 Allergy status to other drugs, medicaments and biological substances ==

== ENCOUNTER → 2024-06-03 | Outpatient (CLI) | payer OTHER, MEDICAID | LOC: M PAIN 15:30 | PROVIDERS: ATTEND Nurse Practitioner Family | DX: M47.816 Spondylosis without myelopathy or radiculopathy, lumbar region (principal); Z79.891 Long term (current) use of opiate analgesic; G89.29 Other chronic pain; E11.40 Type 2 diabetes mellitus with diabetic neuropathy, unspecified; J44.9 Chronic obstructive pulmonary disease, unspecified; M54.41 Lumbago with sciatica, right side; M54.42 Lumbago with sciatica, left side; G14 Postpolio syndrome; Z87.891 Personal history of nicotine dependence; Z79.4 Long term (current) use of insulin; Z79.82 Long term (current) use of aspirin; Z79.899 Other long term (current) drug therapy; Z88.5 Allergy status to narcotic agent; Z88.8 Allergy status to other drugs, medicaments and biological substances ==

== ENCOUNTER → 2024-07-04 | Outpatient (CLI) | payer OTHER, MEDICAID | LOC: M PAIN 17:30 | PROVIDERS: ATTEND Nurse Practitioner Family | DX: M47.816 Spondylosis without myelopathy or radiculopathy, lumbar region (principal); Z79.891 Long term (current) use of opiate analgesic; G89.29 Other chronic pain; M54.41 Lumbago with sciatica, right side; E11.40 Type 2 diabetes mellitus with diabetic neuropathy, unspecified; J44.9 Chronic obstructive pulmonary disease, unspecified; M54.42 Lumbago with sciatica, left side; J43.9 Emphysema, unspecified; Z79.4 Long term (current) use of insulin; Z79.82 Long term (current) use of aspirin; Z79.899 Other long term (current) drug therapy; Z88.5 Allergy status to narcotic agent; Z88.8 Allergy status to other drugs, medicaments and biological substances ==

== ENCOUNTER → 2024-08-02 | Outpatient (CLI) | payer OTHER, MEDICAID | LOC: M PAIN 17:30 | PROVIDERS: ATTEND Nurse Practitioner Family | DX: M47.816 Spondylosis without myelopathy or radiculopathy, lumbar region (principal); Z79.891 Long term (current) use of opiate analgesic; G89.29 Other chronic pain; E11.40 Type 2 diabetes mellitus with diabetic neuropathy, unspecified; J44.9 Chronic obstructive pulmonary disease, unspecified; M54.41 Lumbago with sciatica, right side; M54.42 Lumbago with sciatica, left side; J43.9 Emphysema, unspecified; Z87.891 Personal history of nicotine dependence; Z79.4 Long term (current) use of insulin; Z79.82 Long term (current) use of aspirin; Z79.899 Other long term (current) drug therapy; Z88.5 Allergy status to narcotic agent; Z88.8 Allergy status to other drugs, medicaments and biological substances ==

== ENCOUNTER → 2024-09-05 | Outpatient (CLI) | payer OTHER, MEDICAID | LOC: M PAIN 11:15 | PROVIDERS: ATTEND Nurse Practitioner Family | DX: M47.816 Spondylosis without myelopathy or radiculopathy, lumbar region (principal); Z79.891 Long term (current) use of opiate analgesic; G89.29 Other chronic pain; E11.40 Type 2 diabetes mellitus with diabetic neuropathy, unspecified; M54.41 Lumbago with sciatica, right side; M54.42 Lumbago with sciatica, left side; J43.9 Emphysema, unspecified; Z87.891 Personal history of nicotine dependence; Z79.4 Long term (current) use of insulin; Z79.82 Long term (current) use of aspirin; Z79.899 Other long term (current) drug therapy; Z88.8 Allergy status to other drugs, medicaments and biological substances; Z88.5 Allergy status to narcotic agent ==